=== PATIENT | male | born 1950 | race Caucasian/White ===

== ENCOUNTER 2022-11-10 09:46 | Outpatient (REF) | payer OTHER, SELFPAY ==
--- NOTE | ~2022-11-10 | XR_ITS ---
EXAMINATION: XR lumbar spine 2-3V CLINICAL INFORMATION: Reason for Exam LUMBAGO WITH SCIATICA RIGHT SIDE COMPARISON: None TECHNIQUE: 3 views of the lumbar spine FINDINGS: There are 6 nonrib-bearing lumbar-type vertebral bodies with lumbarization of S1. The last well-formed disc space will be referred to as S1-S2. Vertebral body heights are maintained. Alignment is maintained. Mild multilevel degenerative disc disease with loss of disc space height, facet arthropathy and disc osteophyte complexes. This is worst at T12/L1. Paravertebral soft tissues are unremarkable. XR/XR lumbar spine 2-3V IMPRESSION: * Mild spondylosis of the lumbar spine, as above detailed.
[2022-11-10 11:26] LABS: Estimated Average Glucose 186 mg/dL; Hemoglobin A1c % 8.1 %
[2022-11-10 13:10] LABS: Syphilis Screen Nonreactive (Nonreactive)
[2022-11-10 13:26] LABS: Alanine Aminotransferase 20 U/L (0-40); Albumin Level 4.1 g/dL (3.5-5.0); Alkaline Phosphatase 106 U/L (39-117); Anion Gap 17 (12-20); Aspartate Amino Transferase 15 U/L (5-37); Bilirubin Total 0.5 mg/dL (0.0-1.0); Blood Urea Nitrogen 20 mg/dL (9-16); Calcium 9.9 mg/dL (8.4-10.2); Carbon Dioxide 29 mmol/L (22-29); Chloride 100 mmol/L (96-108); Cholesterol 181 mg/dL; Estimated Glomerular Filt Rate 56; Glucose Random 291 mg/dL (60-115); HDL Cholesterol 42 mg/dL; LDL Cholesterol Calculated 88 mg/dl; Potassium 3.9 mmol/L (3.3-5.1); Sodium 142 mmol/L (135-145); Triglycerides 256 mg/dL
[2022-11-10 13:28] LABS: Prostate Specific Antigen 0.41 ng/mL (<0.05-4.0); TSH reflex Free T4 0.94 uIU/mL (0.32-4.0)
[2022-11-10 13:47] LABS: Folate 16.2 ng/mL (> or = 4.0); Vitamin B12 295 pg/mL (200-900)
== END 2022-11-10 09:47 | disposition home or self-care (01) ==
LOC: HO.XRAY 09:46
PROVIDERS: PCP Internal Medicine; Visit Provider Physician Assistant
DX: M54.41 Lumbago with sciatica, right side (principal); E78.2 Mixed hyperlipidemia; E11.9 Type 2 diabetes mellitus without complications; N40.0 Benign prostatic hyperplasia without lower urinary tract symptoms; F03.90 Unspecified dementia, unspecified severity, without behavioral disturbance, psychotic disturbance, mood disturbance, and anxiety; Z12.5 Encounter for screening for malignant neoplasm of prostate
CPT/HCPCS: 36415; 72100; 80053; 80061; 82607; 82746; 83036; 84153; 84443; 86780

== ENCOUNTER → 2022-12-10 14:02 | Outpatient (REF) | payer OTHER, SELFPAY ==
--- NOTE | 2022-12-10 | ECG_ITS ---
Test Reason : syncope Blood Pressure : / mmHG Vent. Rate : 097 BPM Atrial Rate : 097 BPM P-R Int : 206 ms QRS Dur : 082 ms QT Int : 358 ms P-R-T Axes : 052 -33 071 degrees QTc Int : 454 ms Normal sinus rhythm Left axis deviation Inferior infarct , age undetermined Nonspecific ST and T wave abnormality Abnormal ECG No previous ECGs available Referred By: Dora Navas Electronically Signed By:SEBASTIEN BOOGIE
--- NOTE | 2022-12-10 14:07 | HM_ITS ---
CARDIAC EVENT MONITOR Indication: Tachycardia Technique: Patient was hooked up to cardiac event monitor starting on 12/10/2022 for total period of 30 days. Compliance was 83% of the time. Strip quality was adequate. Findings: Baseline was normal sinus rhythm with lower start of 57 beats per minute and fastest heart rate of 144 beats per minute with no significant tachy or Basilio arrhythmias noted. There were no significant pauses noted. There were total of 3.5% of total beats accounting for PVCs accounting for frequent PVCs. There were total of 1.1% of supraventricular ectopic accounting for frequent supraventricular ectopy. There were no prolonged runs of SVT or nonsustained ventricular tachycardia noted Patient reported total of 7 events, 4 of them without any symptoms. Symptoms of dizziness correlated with isolated PACs. One reported symptom of tunnel vision correlated with PACs as well. Conclusion: 1. Baseline rhythm was normal sinus rhythm with no pauses 2. Frequent PVCs and PACs, mostly isolated 3. Patient reported events appear to be non arrhythmic correlating with isolated PACs: MTDD
== END ==
LOC: HO.CARD 14:02
PROVIDERS: PCP Internal Medicine; Visit Provider Physician Assistant
DX: R55 Syncope and collapse (principal); R00.0 Tachycardia, unspecified
CPT/HCPCS: 93005; 93270

== ENCOUNTER 2022-12-12 12:14 | Emergency (ER) | payer OTHER, SELFPAY ==
--- NOTE | ~2022-12-12 | XR_ITS ---
EXAMINATION: XR CHEST CLINICAL INFORMATION: Near syncope COMPARISON: None TECHNIQUE: PA and lateral views FINDINGS: Electronic device projects over the left chest wall. Normal symmetric lung volumes. No parenchymal consolidation. No pleural effusion. No pneumothorax. Cardiomediastinal silhouette and pulmonary vascularity are within normal limits. No acute osseous abnormalities. XR/XR chest 2V IMPRESSION: Clear lungs
--- NOTE | ~2022-12-12 | CT_ITS ---
EXAMINATION: CT HEAD WITHOUT CONTRAST CLINICAL INFORMATION: Near syncope COMPARISON: None. TECHNIQUE: Contiguous axial imaging was performed from the skull base to vertex without intravenous contrast. This CT examination was performed using dose optimization techniques as appropriate, variously including the following: * Automated exposure control * Adjustment of mA and/or kV according to patient size (this includes techniques or standardized protocols for targeted exams where dose is matched to indication/reason for exam; i.e. extremities or head) Use of iterative reconstruction technique DLP: 669 mGy-cm. FINDINGS: There is no evidence of acute intracranial hemorrhage or territorial infarction. No abnormal mass effect or midline shift is seen. Mejia to white matter differentiation is well preserved. No extra-axial fluid collections are identified. No hydrocephalus. Proportional prominence of the ventricles and sulcal spaces is consistent with mild volume loss. Patchy periventricular and deep white matter hypoattenuation is consistent with mild small vessel ischemic changes. The osseous structures and soft tissues are normal. The mastoid air cells and visualized portions of the paranasal sinuses are well aerated. CT/CT head/brain wo IV con IMPRESSION: No acute intracranial pathology. Mild volume loss with small vessel ischemic change.
[2022-12-12 12:18] VITALS: BP 108/72; PULSE 101; RESP 16; TEMP 36.9; O2SAT 99; BMI 25.7
--- NOTE | 2022-12-12 12:20 | ED.GENADULT ---
HPI - General Adult General Chief complaint: Dyspnea <JOSE Hilliard Last Filed: 12/12/22 17:36> Stated complaint: bp dropped sob <JOSE Hilliard Last Filed: 12/12/22 17:36> Time Seen by Provider: 12/12/22 14:56 <JOSE Hilliard Last Filed: 12/12/22 17:36> Source: patient <Junior Arias DO - Last Filed: 12/12/22 15:39> Mode of arrival: ambulatory <DO Suha Mckeon Last Filed: 12/12/22 15:39> Limitations: no limitations <DO Suha Mckeon Last Filed: 12/12/22 15:39> History of Present Illness HPI narrative: 72 year old male presents to the ED with episodes of near syncope dizziness for the past week. 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 He had a EKG. He states he was called today because EKG showed a possible heart attack. He had the EKG 2 days ago he states he was called come back to the ER for this abnormal EKG. Patient had EKG on arrival patient had a complete workup including CT scan x-rays and labs negative. Per his he get orthostatic and near syncopal when standing. They both state that Dora Yosef read the EKG and called them to come in for a heart attack <Junior Arias DO - Last Filed: 12/12/22 15:39> Related Data Allergies/adverse reactions: Allergies Allergy/AdvReac Type Severity Reaction Status Date / Time No Known Allergies Allergy Verified 12/12/22 12:18 <JOSE Hilliard - Last Filed: 12/12/22 17:36> Review of Systems Review of Systems: Review of systems: General: Patient denies any fever chills recent illness or falls Musculoskeletal: Denies back pain or body aches or other injuries HEENT: denies headache, runny nose, ear pain Respiratory: denies shortness of breath, cough Cardiovascular: no chest pain or palpitations : denies dysuria, frequency Abdomen: no nausea vomiting denies abdominal pain Extremities: no swelling, no pain Skin: no diaphoresis <DO Suha Mckeon Last Filed: 12/12/22 15:39> Yes all other systems are reviewed and are negative <DO Suha Mckeon Last Filed: 12/12/22 15:39> PMFSH Social History Social History: Social History Advance Directives: No Advance Directives Information Provided: Yes <JOSE Hilliard Last Filed: 12/12/22 17:36> Physical Exam ED Vital Signs: Vital Signs - 24 hr 12/12/22 12:18 Temperature 98.4 F Pulse Rate 101 H Respiratory Rate 16 Blood Pressure 108/72 Pulse Oximetry 99 Oxygen Delivery Method Room Air BMI result Body Mass Index 25.7 <JOSE Hilliard Last Filed: 12/12/22 17:36> Vital Signs - 24 hr 12/12/22 12:18 Temperature 98.4 F Pulse Rate 101 H Respiratory Rate 16 Blood Pressure 108/72 Pulse Oximetry 99 Oxygen Delivery Method Room Air BMI result Body Mass Index 25.7 <Junior Arias DO - Last Filed: 12/12/22 15:39> General: Well-appearing well-nourished in no signs of distress HEENT: Normocephalic atraumatic Neck: No signs of JVD, no masses no tenderness or lymphadenopathy Cardiovascular: Regular rate and rhythm Respiratory: Clear to auscultation bilaterally Abdomen: Soft nontender no masses Extremities: Normal pedal pulses no signs of edema Skin: Dry warm no rashes Back: No tenderness full ROM <DO Suha Mckeon Last Filed: 12/12/22 15:39> Course Course Course Narrative: RME performed by Nettie Guaman PA-C. Patient is a 72 year old male presenting to the emergency department with a fluctuating blood pressure. Patient states that he has been having episodes of near syncope when his blood pressure drops and it was recommended he come to the emergency department. Labs and EKG ordered. Patient placed back in the waiting room pending results and room availability. <JOSE Hilliard Last Filed: 12/12/22 17:36> Medical Decision Making Medical Decision Making MDM Narrative: Patient sent for an abnormal EKG by his primary care doctor. I did review the EKG which is unchanged from the 1 from today there is no signs ischemia there is no concerning signs on EKG for syncope. he already has a holter monitor in place on his chest from two days ago. Normal CT XR labs. I feel comfortable sending the patient home. I did put in a call to talk to Dora Tran <Junior Arias DO - Last Filed: 12/12/22 15:39> Differential Diagnosis Differential Diagnoses: The differential diagnosis associated with the presentation includes <Junior Arias DO - Last Filed: 12/12/22 15:39> Admission/Observation Consideration of admission/observation: Escalation of care including admission/observation considered <Junior Arias DO - Last Filed: 12/12/22 15:39> Consult Healthcare Provider Management of the patient was discussed with: Computer Terminal Operator and Primary Care Provider <Junior Arias DO - Last Filed: 12/12/22 15:39> Lab Data MDM Lab Attestation statement: I reviewed the patient's lab results. <Junior Arias DO - Last Filed: 12/12/22 15:39> Result Diagrams: 12/12/22 12:39 12/12/22 12:39 <JOSE Hilliard - Last Filed: 12/12/22 17:36> Labs: Lab Results 12/12/22 12/12/22 12/12/22 Range/Units 12:35 12:39 12:39 WBC 8.7 (4.8-10.8) X10*3/uL RBC 4.09 L (4.60-5.80) X10*6/uL Hgb 12.1 L (14.0-18.0) g/dl Hct 37.3 L (42.0-52.0) % MCV 91.2 (80.0-98.0) fL MCH 29.6 (27.0-33.0) pg MCHC 32.4 (31.0-36.0) g/dl RDW 13.0 (11.0-16.0) % Plt Count 189 (160-400) X10*3/uL MPV 10.6 (9.4-12.4) fL Immature Gran % (Auto) 0.3 (0.0-0.4) % Neut % (Auto) 73.3 H (45-73) % Lymph % (Auto) 15.7 L (20-40) % Franklin % (Auto) 5.9 (2-11) % Eos % (Auto) 4.3 H (0-4) % Baso % (Auto) 0.5 (0-2) % Lymph # (Auto) 1.4 (1.2-4.9) X10*3/uL Franklin # (Auto) 0.5 (0.1-1.2) X10*3/uL Eos # (Auto) 0.4 (0.0-0.4) X10*3/uL Baso # (Auto) 0.0 (0.0-0.2) X10*3/uL Abs Immat Gran (auto) 0.03 (0.00-0.03) X10*3/uL Absolute Neuts (auto) 6.3 (2.0-8.3) x10*3/uL Absolute Nucleated RBC 0.000 (0.0-0.012) X10*3/uL Nucleated RBC % (auto) 0.0 (0.0-0.2) /100WBC Sodium 143 (135-145) mmol/L Potassium 3.5 (3.3-5.1) mmol/L Chloride 100 (96-108) mmol/L Carbon Dioxide 34 H (22-29) mmol/L Anion Gap 13 (12-20) BUN 18 H (9-16) mg/dL Creatinine 1.12 (0.5-1.4) mg/dL Estim Creat Clear Calc 70.3 Estimated GFR > 60 Random Glucose 228 H (60-115) mg/dL Calcium 9.5 (8.4-10.2) mg/dL Magnesium 2.0 (1.6-2.6) mg/dL Total Bilirubin 0.6 (0.0-1.0) mg/dL AST 15 (5-37) U/L ALT 18 (0-40) U/L Alkaline Phosphatase 101 (39-117) U/L Troponin I High Sens (<3.5-35.0) ng/L B-Natriuretic Peptide (<100) pg/mL Total Protein 6.5 (6.5-8.0) g/dL Albumin 3.8 (3.5-5.0) g/dL COVID-19 (ROEL) Negative (Negative) COVID-19 Clin Com See Note 12/12/22 12/12/22 Range/Units 12:39 12:39 WBC (4.8-10.8) X10*3/uL RBC (4.60-5.80) X10*6/uL Hgb (14.0-18.0) g/dl Hct (42.0-52.0) % MCV (80.0-98.0) fL MCH (27.0-33.0) pg MCHC (31.0-36.0) g/dl RDW (11.0-16.0) % Plt Count (160-400) X10*3/uL MPV (9.4-12.4) fL Immature Gran % (Auto) (0.0-0.4) % Neut % (Auto) (45-73) % Lymph % (Auto) (20-40) % Franklin % (Auto) (2-11) % Eos % (Auto) (0-4) % Baso % (Auto) (0-2) % Lymph # (Auto) (1.2-4.9) X10*3/uL Franklin # (Auto) (0.1-1.2) X10*3/uL Eos # (Auto) (0.0-0.4) X10*3/uL Baso # (Auto) (0.0-0.2) X10*3/uL Abs Immat Gran (auto) (0.00-0.03) X10*3/uL Absolute Neuts (auto) (2.0-8.3) x10*3/uL Absolute Nucleated RBC (0.0-0.012) X10*3/uL Nucleated RBC % (auto) (0.0-0.2) /100WBC Sodium (135-145) mmol/L Potassium (3.3-5.1) mmol/L Chloride (96-108) mmol/L Carbon Dioxide (22-29) mmol/L Anion Gap (12-20) BUN (9-16) mg/dL Creatinine (0.5-1.4) mg/dL Estim Creat Clear Calc Estimated GFR Random Glucose (60-115) mg/dL Calcium (8.4-10.2) mg/dL Magnesium (1.6-2.6) mg/dL Total Bilirubin (0.0-1.0) mg/dL AST (5-37) U/L ALT (0-40) U/L Alkaline Phosphatase (39-117) U/L Troponin I High Sens 4.1 (<3.5-35.0) ng/L B-Natriuretic Peptide < 10 (<100) pg/mL Total Protein (6.5-8.0) g/dL Albumin (3.5-5.0) g/dL COVID-19 (ROEL) (Negative) COVID-19 Clin Com <JOSE Hilliard - Last Filed: 12/12/22 17:36> Lab Results 12/12/22 12/12/22 12/12/22 Range/Units 12:35 12:39 12:39 WBC 8.7 (4.8-10.8) X10*3/uL RBC 4.09 L (4.60-5.80) X10*6/uL Hgb 12.1 L (14.0-18.0) g/dl Hct 37.3 L (42.0-52.0) % MCV 91.2 (80.0-98.0) fL MCH 29.6 (27.0-33.0) pg MCHC 32.4 (31.0-36.0) g/dl RDW 13.0 (11.0-16.0) % Plt Count 189 (160-400) X10*3/uL MPV 10.6 (9.4-12.4) fL Immature Gran % (Auto) 0.3 (0.0-0.4) % Neut % (Auto) 73.3 H (45-73) % Lymph % (Auto) 15.7 L (20-40) % Franklin % (Auto) 5.9 (2-11) % Eos % (Auto) 4.3 H (0-4) % Baso % (Auto) 0.5 (0-2) % Lymph # (Auto) 1.4 (1.2-4.9) X10*3/uL Franklin # (Auto) 0.5 (0.1-1.2) X10*3/uL Eos # (Auto) 0.4 (0.0-0.4) X10*3/uL Baso # (Auto) 0.0 (0.0-0.2) X10*3/uL Abs Immat Gran (auto) 0.03 (0.00-0.03) X10*3/uL Absolute Neuts (auto) 6.3 (2.0-8.3) x10*3/uL Absolute Nucleated RBC 0.000 (0.0-0.012) X10*3/uL Nucleated RBC % (auto) 0.0 (0.0-0.2) /100WBC Sodium 143 (135-145) mmol/L Potassium 3.5 (3.3-5.1) mmol/L Chloride 100 (96-108) mmol/L Carbon Dioxide 34 H (22-29) mmol/L Anion Gap 13 (12-20) BUN 18 H (9-16) mg/dL Creatinine 1.12 (0.5-1.4) mg/dL Estim Creat Clear Calc 70.3 Estimated GFR > 60 Random Glucose 228 H (60-115) mg/dL Calcium 9.5 (8.4-10.2) mg/dL Magnesium 2.0 (1.6-2.6) mg/dL Total Bilirubin 0.6 (0.0-1.0) mg/dL AST 15 (5-37) U/L ALT 18 (0-40) U/L Alkaline Phosphatase 101 (39-117) U/L Troponin I High Sens (<3.5-35.0) ng/L B-Natriuretic Peptide (<100) pg/mL Total Protein 6.5 (6.5-8.0) g/dL Albumin 3.8 (3.5-5.0) g/dL COVID-19 (ROEL) Negative (Negative) COVID-19 Clin Com See Note 12/12/22 12/12/22 Range/Units 12:39 12:39 WBC (4.8-10.8) X10*3/uL RBC (4.60-5.80) X10*6/uL Hgb (14.0-18.0) g/dl Hct (42.0-52.0) % MCV (80.0-98.0) fL MCH (27.0-33.0) pg MCHC (31.0-36.0) g/dl RDW (11.0-16.0) % Plt Count (160-400) X10*3/uL MPV (9.4-12.4) fL Immature Gran % (Auto) (0.0-0.4) % Neut % (Auto) (45-73) % Lymph % (Auto) (20-40) % Franklin % (Auto) (2-11) % Eos % (Auto) (0-4) % Baso % (Auto) (0-2) % Lymph # (Auto) (1.2-4.9) X10*3/uL Franklin # (Auto) (0.1-1.2) X10*3/uL Eos # (Auto) (0.0-0.4) X10*3/uL Baso # (Auto) (0.0-0.2) X10*3/uL Abs Immat Gran (auto) (0.00-0.03) X10*3/uL Absolute Neuts (auto) (2.0-8.3) x10*3/uL Absolute Nucleated RBC (0.0-0.012) X10*3/uL Nucleated RBC % (auto) (0.0-0.2) /100WBC Sodium (135-145) mmol/L Potassium (3.3-5.1) mmol/L Chloride (96-108) mmol/L Carbon Dioxide (22-29) mmol/L Anion Gap (12-20) BUN (9-16) mg/dL Creatinine (0.5-1.4) mg/dL Estim Creat Clear Calc Estimated GFR Random Glucose (60-115) mg/dL Calcium (8.4-10.2) mg/dL Magnesium (1.6-2.6) mg/dL Total Bilirubin (0.0-1.0) mg/dL AST (5-37) U/L ALT (0-40) U/L Alkaline Phosphatase (39-117) U/L Troponin I High Sens 4.1 (<3.5-35.0) ng/L B-Natriuretic Peptide < 10 (<100) pg/mL Total Protein (6.5-8.0) g/dL Albumin (3.5-5.0) g/dL COVID-19 (ROEL) (Negative) COVID-19 Clin Com <Junior Arias DO - Last Filed: 12/12/22 15:39> Independent Interpretation I performed an independent interpretation of an: EKG <Junior Arias DO - Last Filed: 12/12/22 15:39> Interpretation: Rate98 nsr normal intervals no signs of ischemia Patient has normal intervals normal ID interval there is no delta wave there is no rib intervention had an in V1 V2 or signs of Brugada syndrome there is no LVH or needle-like Q-waves there is no normal QT interval and there is no epsilon wave that be associated with arrhythmogenic right ventricular dysplasia <Junior Arias DO - Last Filed: 12/12/22 15:39> Independent Historian Clinical information obtained from an independent historian. History obtained from or confirmed by: Spouse <Junior Arias DO - Last Filed: 12/12/22 15:39> External Record Review External record reviewed: Inpatient record and Outpatient record <Junior Arias DO - Last Filed: 12/12/22 15:39> Discharge Plan Discharge Clinical Impression: Near syncope <JOSE Hilliard - Last Filed: 12/12/22 17:36> Patient Disposition: Home, Self-Care <JOSE Hilliard - Last Filed: 12/12/22 17:36> Instructions: Near Syncope (ED) <JOSE Hilliard - Last Filed: 12/12/22 17:36> Additional Instructions: Please call to follow up with doctor. If you have any other concerns please return to the ED. <JOSE Hilliard - Last Filed: 12/12/22 17:36> Discharge Date/Time: 12/12/22 16:01 <JOSE Hilliard - Last Filed: 12/12/22 17:36>
--- NOTE | 2022-12-12 12:21 | ECG_ITS ---
Test Reason : dizziness Blood Pressure : / mmHG Vent. Rate : 098 BPM Atrial Rate : 098 BPM P-R Int : 214 ms QRS Dur : 084 ms QT Int : 374 ms P-R-T Axes : 057 -18 061 degrees QTc Int : 477 ms Sinus rhythm with 1st degree A-V block Nonspecific ST and T wave abnormality Abnormal ECG When compared with ECG of 10-DEC-2022 14:42, No significant changes seen Referred By: Nettie Guaman Electronically Signed By:SEBASTIEN BOOGIE
[2022-12-12 12:51] LABS: MANUAL DIFF FLAG NO
[2022-12-12 12:54] LABS: Basophils Percent Auto 0.5 % (0-2); Eosinophils Absolute Auto 0.4 X10*3/uL (0.0-0.4); Eosinophils Percent Auto 4.3 % (0-4); Hematocrit 37.3 % (42.0-52.0); Hemoglobin 12.1 g/dl (14.0-18.0); Imm Gran Abs Auto 0.03 X10*3/uL (0.00-0.03); Imm Gran Pct Auto 0.3 % (0.0-0.4); Lymphocytes Absolute Auto 1.4 X10*3/uL (1.2-4.9); Lymphocytes Percent Auto 15.7 % (20-40); Mean Corpuscular HGB Conc 32.4 g/dl (31.0-36.0); Mean Corpuscular Hemoglobin 29.6 pg (27.0-33.0); Mean Corpuscular Volume 91.2 fL (80.0-98.0); Mean Platelet Volume 10.6 fL (9.4-12.4); Monocytes Absolute Auto 0.5 X10*3/uL (0.1-1.2); Monocytes Percent Auto 5.9 % (2-11); Neutrophils Absolute Auto 6.3 x10*3/uL (2.0-8.3); Neutrophils Percent Auto 73.3 % (45-73); Platelet Count 189 X10*3/uL (160-400); Red Blood Count 4.09 X10*6/uL (4.60-5.80); White Blood Count 8.7 X10*3/uL (4.8-10.8)
[2022-12-12 13:06] LABS: IDNOW Serial# 16C4AD1C
[2022-12-12 13:07] LABS: COVID-19 Test Negative (Negative)
[2022-12-12 13:13] LABS: Alanine Aminotransferase 18 U/L (0-40); Albumin Level 3.8 g/dL (3.5-5.0); Alkaline Phosphatase 101 U/L (39-117); Anion Gap 13 (12-20); Aspartate Amino Transferase 15 U/L (5-37); Bilirubin Total 0.6 mg/dL (0.0-1.0); Blood Urea Nitrogen 18 mg/dL (9-16); Calcium 9.5 mg/dL (8.4-10.2); Carbon Dioxide 34 mmol/L (22-29); Chloride 100 mmol/L (96-108); Creatinine Clr Calc Pharmacy 70.3; Estimated Glomerular Filt Rate > 60; Glucose Random 228 mg/dL (60-115); Potassium 3.5 mmol/L (3.3-5.1); Sodium 143 mmol/L (135-145); Total Protein 6.5 g/dL (6.5-8.0)
[2022-12-12 13:20] LABS: Troponin-I High Sensitivity 4.1 ng/L (<3.5-35.0)
[2022-12-12 13:30] LABS: B Type Natriuretic Peptide < 10 pg/mL (<100)
== END 2022-12-12 16:01 | disposition home or self-care (01) ==
PROVIDERS: Physician Assistant Medical; Emergency Provider Student in an Organized Health Care Education/Training Program; PCP Internal Medicine
DX: R42 Dizziness and giddiness (principal); R06.02 Shortness of breath; R55 Syncope and collapse; Z20.822 Contact with and (suspected) exposure to COVID-19; Z20.828 Contact with and (suspected) exposure to other viral communicable diseases; Z79.899 Other long term (current) drug therapy
CPT/HCPCS: 70450; 71046; 80053; 83735; 83880; 84484; 85025; 87635; 93005; 99283; 99284

== ENCOUNTER 2023-01-07 08:44 | Outpatient (REF) | payer OTHER, SELFPAY ==
--- NOTE | 2023-01-07 08:46 | EMG_ITS ---
Please see scanned EMG / Nerve Conduction Report. MTDD
== END 2023-01-07 08:45 | disposition home or self-care (01) ==
LOC: HO.NEURO 08:44
PROVIDERS: PCP Internal Medicine; Visit Provider Physician Assistant
DX: M54.41 Lumbago with sciatica, right side (principal)
CPT/HCPCS: 95885; 95910

== ENCOUNTER 2023-05-05 10:53 | Outpatient (REF) | payer OTHER, SELFPAY ==
[2023-05-05 13:51] LABS: Appearance Urine Clear; Color Urine Yellow; Glucose Urine UA >=1000 mg/dL (Negative); Leukocyte Esterase Urine Negative (Negative); Nitrite Urine Negative (Negative); PH 5.5 (5.0-9.0); Specific Gravity - Urine >= 1.030 (1.005-1.025); UMIC TRIGGER UACC YES; Urine Blood Negative (Negative); Urine Ketones Negative (Negative); Urine Protein Negative (Neg-Trace)
[2023-05-05 13:56] LABS: Bacteria Urine None Seen (None Seen); Squamous Epithelial Cell Urine 0-2 /HPF (0-2); WBC Urine 0-5 /HPF (0-5)
[2023-05-05 14:17] LABS: Estimated Average Glucose 146 mg/dL; Hemoglobin A1c % 6.7 %
[2023-05-05 14:51] LABS: Alanine Aminotransferase 13 U/L (0-40); Alkaline Phosphatase 109 U/L (39-117); Anion Gap 16 (12-20); Aspartate Amino Transferase 13 U/L (5-37); Bilirubin Total 0.4 mg/dL (0.0-1.0); Blood Urea Nitrogen 15 mg/dL (9-16); Calcium 9.9 mg/dL (8.4-10.2); Carbon Dioxide 30 mmol/L (22-29); Chloride 105 mmol/L (96-108); Cholesterol 195 mg/dL; Estimated Glomerular Filt Rate > 60; Glucose Random 105 mg/dL (60-115); HDL Cholesterol 45 mg/dL; LDL Cholesterol Calculated 107 mg/dl; Potassium 3.2 mmol/L (3.3-5.1); Sodium 148 mmol/L (135-145); Total Protein 7.2 g/dL (6.5-8.0); Triglycerides 218 mg/dL
[2023-05-05 15:17] LABS: Prostate Specific Antigen 0.31 ng/mL (<0.05-4.0)
== END 2023-05-05 10:54 | disposition home or self-care (01) ==
LOC: HO.MANLDS 10:53
PROVIDERS: Visit Provider Physician Assistant
DX: Z12.5 Encounter for screening for malignant neoplasm of prostate (principal); N40.0 Benign prostatic hyperplasia without lower urinary tract symptoms; E11.9 Type 2 diabetes mellitus without complications; R30.0 Dysuria
CPT/HCPCS: 36415; 80053; 80061; 81001; 83036; 84153

== ENCOUNTER 2024-02-15 11:33 | Inpatient (IN) | payer BC, SELFPAY ==
[2024-02-15] VITALS (27 sets, daily range): BP systolic 132–201; BP diastolic 77–126; PULSE 71–94; RESP 11–20; TEMP 36.5–36.8; O2SAT 93–98; BMI 25.5
--- NOTE | 2024-02-15 | ECG_ITS ---
Test Reason : REPEAT EKG Blood Pressure : / mmHG Vent. Rate : 087 BPM Atrial Rate : 087 BPM P-R Int : 202 ms QRS Dur : 084 ms QT Int : 412 ms P-R-T Axes : 043 -39 069 degrees QTc Int : 495 ms Sinus rhythm with frequent Premature ventricular complexes Left axis deviation Septal infarct , age undetermined Abnormal ECG When compared with ECG of 15-FEB-2024 12:11, Premature atrial complexes are no longer Present Referred By: Dora Cid Electronically Signed By:SEBASTIEN BOOGIE
--- NOTE | ~2024-02-15 | CT_ITS ---
CT ANGIOGRAM NECK WITH CONTRAST CT ANGIOGRAM BRAIN WITH CONTRAST CLINICAL INFORMATION: Slurred speech. COMPARISON: Head CT 02/15/2024 and 12/12/2022. TECHNIQUE: Test bolus sequences followed by intravenous administration 70 mL of Omnipaque 350. Helical imaging was performed in the axial plane from the thoracic inlet to the skull vertex. Delayed postcontrast imaging of the head was also performed. The data was processed at the industrial engineering technologist workstation for generation of MIP sequences. Angled MIPs and volume rendered reformatted images were also generated at an offline 3D workstation under concurrent supervision. Stenoses are assessed in accordance with NASCET criteria unless otherwise indicated. This CT examination was performed using dose optimization techniques as appropriate, variously including the following: *Automated exposure control *Adjustment of mA and/or kV according to patient size (this includes techniques or standardized protocols for targeted exams where dose is matched to indication/reason for exam; i.e. extremities or head) *Use of iterative reconstruction technique FINDINGS: BRAIN: [Left parietotemporal craniotomy and left occipital craniectomy changes. Advanced chronic microangiopathy and chronic lacunar infarcts. There is no intracranial hemorrhage, hydrocephalus, extra-axial surface collection, midline shift, or other herniation pattern. Mejia to white matter differentiation is diffusely maintained without evidence of an evolved acute territorial infarct. The basilar cisterns are preserved. No significant soft tissue abnormality. No acute osseous abnormality. The paranasal sinuses and the mastoid air cells are well aerated.] CERVICAL SOFT TISSUES AND LUNG APICES: Multilevel cervical spondylosis. Imaged upper lungs are clear. The imaged upper mediastinum is unremarkable. No significant soft tissue findings within the neck. NECK CTA: [There is a classic 3 vessel configuration of the aortic arch. Proximal arch vessels are non-stenotic. The vertebral arteries are codominant. No significant ostial stenosis is visualized on either side. Both vertebral arteries are widely patent throughout their extracranial cervical course. Both common carotid arteries remain widely patent. Partially ulcerated fibrofatty atherosclerotic plaque and calcific plaque involving the right carotid bulb resulting in a 50% stenosis of the proximal right internal carotid artery. Atherosclerotic calcification results in a less than 50% stenosis of the proximal left cervical ICA. 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 There is no adjacent soft tissue abnormality to suggest intramural hematoma. BRAIN CTA: [Severe segmental stenoses involving the A3 segment of the left anterior cerebral artery and distal A4 branches. No focal flow-limiting stenosis nor discrete proximal large artery occlusion. 2.5 mm junctional prominence versus aneurysm at the left anterior cerebral artery/anterior communicating artery junction. Timing of the contrast bolus allows assessment of the major dural venous sinuses, which all opacify normally] CT/CT angio head neck stroke IMPRESSION: - No definite acute intracranial findings with assessment limited by the degree of advanced chronic microangiopathy and chronic lacunar infarcts within the deep mejia nuclei. If focal neurologic deficit persists, MRI would be more sensitive in evaluation if not contraindicated. - No proximal large vessel occlusions intracranially. 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 2.5 mm junctional prominence versus aneurysm at the left anterior cerebral artery/anterior communicating artery junction. 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 There is no adjacent soft tissue abnormality to suggest intramural hematoma. - Partially ulcerated fibrofatty atherosclerotic plaque and calcific plaque involving the right carotid bulb resulting in a 50% stenosis of the proximal right internal carotid artery. Atherosclerotic calcification results in a less than 50% stenosis of the proximal left cervical ICA. Findings discussed with Dr. Pisano at 12:25 PM on 02/15/2024.
--- NOTE | ~2024-02-15 | CT_ITS ---
EXAMINATION: CT HEAD WITHOUT CONTRAST (STROKE PROTOCOL) CLINICAL INFORMATION: Stroke protocol. Lower speech COMPARISON: CT head from 12/12/2022 TECHNIQUE: Contiguous axial imaging was performed from the skull base to vertex without intravenous administration of contrast. This CT examination was performed using dose optimization techniques as appropriate, variously including the following: *Automated exposure control *Adjustment of mA and/or kV according to patient size (this includes techniques or standardized protocols for targeted exams where dose is matched to indication/reason for exam; i.e. extremities or head) *Use of iterative reconstruction technique DLP: 772 mGy-cm FINDINGS: There is no evidence of acute intracranial hemorrhage or territorial infarction. Chronic white matter small vessel ischemic changes. Cerebral atrophy with commensurate ventricular changes. No abnormal mass effect or midline shift is seen. Mejia to white matter differentiation is well preserved. No extra-axial fluid collections are identified. The ventricles are normal in size. There is no abnormal attenuation within the brain parenchyma. Stable defect/absence along the left parietal bone and left posterior lateral occipital bone. The osseous structures and soft tissues are otherwise normal. The mastoid air cells and visualized portions of the paranasal sinuses are well aerated. Atherosclerotic calcifications. CT/CT head for stroke IMPRESSION: 1. No acute intracranial pathology. 2. Chronic white matter small vessel ischemic changes. This critical result was discussed with Dr. Pisano by telephone on 02/15/2024 12:09 PM and it was ascertained that the content and urgency of the report was understood at the time of direct communication.
--- NOTE | ~2024-02-15 | CT_ITS ---
EXAMINATION: CT HEAD WITHOUT CONTRAST (STROKE PROTOCOL) CLINICAL INFORMATION: Stroke protocol. EXPRESSIVE APHASIA, S/P TNR COMPARISON: 02/15/2024 TECHNIQUE: Contiguous axial imaging was performed from the skull base to vertex without intravenous administration of contrast. This CT examination was performed using dose optimization techniques as appropriate, variously including the following: *Automated exposure control *Adjustment of mA and/or kV according to patient size (this includes techniques or standardized protocols for targeted exams where dose is matched to indication/reason for exam; i.e. extremities or head) *Use of iterative reconstruction technique DLP: 773 mGy-cm FINDINGS: There is no evidence of acute intracranial hemorrhage or territorial infarction. No abnormal mass-effect or midline shift is seen. Mejia to white matter differentiation is well preserved. No extra-axial fluid collections are identified. The ventricles are normal in size. There is moderate periventricular white matter hypoattenuation consistent with chronic small vessel ischemic disease. Moderate volume loss is noted. No acute fracture is seen. Redemonstrated postoperative changes from prior left-sided craniotomy. The mastoid air cells and visualized portions of the paranasal sinuses are well-aerated. CT/CT head for stroke IMPRESSION: No acute intracranial pathology. Chronic small vessel ischemic disease and volume loss. This stroke protocol result was discussed with Marlin Sim on 02/16/2024 4:49 AM.
--- NOTE | ~2024-02-15 | CT_ITS ---
EXAMINATION: CT HEAD WITHOUT CONTRAST CLINICAL INFORMATION: Headache post PA. COMPARISON: CT head dated 02/15/2024. TECHNIQUE: Contiguous axial imaging was performed from the skull base to vertex without intravenous administration of contrast. This CT examination was performed using dose optimization techniques as appropriate, variously including the following: *Automated exposure control *Adjustment of mA and/or kV according to patient size (this includes techniques or standardized protocols for targeted exams where dose is matched to indication/reason for exam; i.e. extremities or head) *Use of iterative reconstruction technique DLP: 721 mGy-cm FINDINGS: There is no acute intracranial hemorrhage. There is no evidence of acute/subacute cerebral or cerebellar infarction. There is advanced microvascular ischemic change. There is no midline shift or mass effect. There is no extra-axial fluid collection. No hydrocephalus. The ocular lenses are surgically absent. There is evidence of left parietotemporal craniotomy and a left occipital craniectomy. The visualized paranasal sinuses are clear. The mastoid air cells are clear. CT/CT head/brain wo IV con IMPRESSION: No intracranial hemorrhage. Advanced microvascular ischemic change.
--- NOTE | ~2024-02-15 | MR_ITS ---
EXAMINATION: MR BRAIN WITHOUT CONTRAST CLINICAL INFORMATION: slurred speech, right sided weakness, facial droop, TNK given COMPARISON: Same day CTA head and neck TECHNIQUE: Multiplanar multisequence MR imaging of the brain was obtained without intravenous contrast. FINDINGS: Postsurgical changes from left parietotemporal and retrosigmoid craniotomy. There is a punctate focus of susceptibility artifact in the left cerebellopontine angle abutting the left middle cerebellar peduncle which is probably postsurgical. There is a punctate focus of hyperintense signal on diffusion-weighted imaging involving the inferomedial right thalamus (series 4 image 17) without definite ADC correlate but with corresponding T2/FLAIR hyperintense signal. No other reduced diffusion is identified. There is no intracranial hemorrhage on iron-sensitive imaging. No extra-axial collection or mass effect/herniation. Patchy periventricular, deep white matter, and brainstem T2 FLAIR hyperintensities consistent with moderate underlying microangiopathy. Chronic lacunar infarcts involving the right thalamus and bilateral basal ganglia. No hydrocephalus. Mild generalized cerebral volume loss with commensurate sulcal and ventricular prominence. The major flow voids at the skull base are preserved. The midline structures are normal. The cerebellar tonsils are normally positioned. The craniocervical junction is normal. Marrow signal is within normal limits. The visualized soft tissues are without significant abnormality. No signal abnormality within the paranasal sinuses or within the mastoid air cells. MR/MR head/brain wo con IMPRESSION: 1. Punctate focus of hyperintense signal on diffusion-weighted imaging involving the inferomedial right thalamus which may represent an acute to subacute infarct versus T2 shine through artifact. No other evidence of acute infarct or other acute intracranial abnormality. 2. Mild generalized volume loss, moderate chronic white matter microangiopathy, and chronic lacunar infarcts involving the deep eaton nuclei.
--- NOTE | ~2024-02-15 | XR_ITS ---
EXAMINATION: XR CHEST CLINICAL INFORMATION: Stroke. COMPARISON: Chest radiograph dated 12/12/2022. TECHNIQUE: Frontal view of the chest was obtained. FINDINGS: Heart size is normal. There is mild calcific atherosclerotic disease of the aorta. The lungs are clear. There is no pleural effusion. No pneumothorax. No acute osseous abnormality. XR/XR chest 1V IMPRESSION: No acute cardiopulmonary disease. Stable appearance of heart and lungs.
--- NOTE | ~2024-02-15 | CT_ITS ---
EXAMINATION: CT head/brain wo IV con CLINICAL INFORMATION: Reason for Exam AMS, LETHARGY COMPARISON: CT head 02/16/2024 TECHNIQUE: Contiguous axial imaging was performed from the skull base to vertex without intravenous contrast. Sagittal and coronal reformatted images were obtained. This CT examination was performed using dose optimization techniques as appropriate, variously including the following: * Automated exposure control * Adjustment of mA and/or kV according to patient size (this includes techniques or standardized protocols for targeted exams where dose is matched to indication/reason for exam; i.e. extremities or head) Use of iterative reconstruction technique DLP: 1504.34 mGy-cm FINDINGS: Mild global cerebral volume loss, unchanged. Confluent periventricular and deep white matter hypoattenuation is nonspecific but likely reflects sequelae of advanced chronic microangiopathy. Redemonstrated chronic lacunar infarcts in the deep eaton nuclei. No territorial loss of eaton-white differentiation. No acute intracranial hemorrhage or extra-axial fluid collection. No mass lesion, significant mass effect, or herniation pattern. Intracranial calcific atherosclerosis. Redemonstrated postsurgical changes following left retrosigmoid craniotomy with pachymeningeal thickening spanning the craniectomy defect with encephalomalacia in the subjacent left cerebellum. Additional left temporal craniotomy is seen. Trace mucosal disease in the maxillary sinuses. No mastoid effusion. CT/CT head/brain wo IV con IMPRESSION: No acute intracranial abnormality. Stable chronic findings as above.
--- NOTE | 2024-02-15 11:44 | ECG_ITS ---
Test Reason : STROKE Blood Pressure : / mmHG Vent. Rate : 094 BPM Atrial Rate : 094 BPM P-R Int : 214 ms QRS Dur : 080 ms QT Int : 406 ms P-R-T Axes : 050 -25 043 degrees QTc Int : 507 ms Sinus rhythm with 1st degree A-V block with frequent Premature ventricular complexes and Premature atrial complexes Inferior infarct , age undetermined Abnormal ECG When compared with ECG of 12-DEC-2022 12:30, Premature ventricular complexes are now Present Premature atrial complexes are now Present Referred By: Issa Pisano Electronically Signed By:SEBASTIEN BOOGIE
--- NOTE | 2024-02-15 11:45 | ED_ITS ---
HPI - Neuro Symptoms/Deficit General Chief Complaint: Stroke Stated Complaint: STROKE ALERT,SLURR/DROOP/MEMORY LKWT 0930,-THINNER Time Seen by Provider: 02/15/24 11:40 Source: patient and EMS Mode of arrival: EMS History of Present Illness HPI Narrative: This is 73 years old male presented to the emergency department complaining of slurred speech facial droop right leg weakness since about 930 in the morning. He arrived via EMS was brought to CT scan right away Time: 09:30 Last Observed Normal: 09:30 Location: speech History of same: No Severity: mild Quality: weak Relieving factors: none Exacerbating factors: none Related Data Home Medications ?Medication ?Instructions ?Recorded ?Confirmed alprazolam 0.25 mg tablet 0.125 mg PO BEDTIME 02/15/24 02/15/24 aspirin 81 mg chewable tablet 81 mg PO DAILY 02/15/24 02/15/24 diazepam 5 mg tablet 2.5 mg PO DAILY@1200 02/15/24 02/15/24 duloxetine 60 mg capsule,delayed 60 mg PO DAILY 02/15/24 02/15/24 release empagliflozin 10 mg tablet 10 mg PO DAILY 02/15/24 02/15/24 (Jardiance) glipizide 10 mg tablet, extended 10 mg PO DAILY 02/15/24 02/15/24 release 24 hr ibuprofen 200 mg tablet 200 mg PO Q6H PRN Pain 02/15/24 02/15/24 levothyroxine 75 mcg tablet 75 mcg PO DAILY 02/15/24 02/15/24 linaclotide 72 mcg capsule 72 mcg PO DAILY PRN constipation 02/15/24 02/15/24 (Linzess) paroxetine HCl 20 mg tablet 30 mg PO DAILY 02/15/24 02/15/24 pregabalin 100 mg capsule 100 mg PO TID 02/15/24 02/15/24 rosuvastatin 20 mg tablet 20 mg PO BEDTIME 02/15/24 02/15/24 tamsulosin 0.4 mg capsule 0.4 mg PO DAILY 02/15/24 02/15/24 tramadol 50 mg tablet 50 mg PO Q6H PRN Pain 02/15/24 02/15/24 valsartan 320 0.5 tab PO DAILY 02/15/24 02/15/24 mg-hydrochlorothiazide 12.5 mg tablet Allergies Allergy/AdvReac Type Severity Reaction Status Date / Time No Known Allergies Allergy Verified 02/15/24 12:22 Review of Systems 2 Constitutional: Constitutional: Reports no additional constitutional complaints ENT: Reports system reviewed and no additional complaints, except as documented Cardiovascular: Cardiovascular: Reports no additional cardiovascular complaints Respiratory: Respiratory: Reports no additional respiratory complaints Gastrointestinal: Gastrointestinal: Reports no additional gastrointestinal complaints Musculoskeletal: Musculoskeletal: Reports no additional musculoskeletal complaints Neurologic: Reports as per HPI and Reports Abnormal speech present Psychiatric: Psychiatric: Reports no additional psychiatric complaints [facility] Past Medical History Attestation statement: The following information was validated with the patient. [facility] Narrative: HTN Social History Social History Smoked in Last 30 Days: No Use of substances other than those prescribed or required for medical reasons: No Advance Directives: No Advance Directives Information Provided: No Do you have a plan to hurt others: No Plan Physical Exam 2 Vital Signs: Vital Signs: Last Vital Signs Temp 97.7 F 02/15/24 12:15 Pulse 75 02/15/24 15:48 Resp 16 02/15/24 15:48 BP 157/93 H 02/15/24 15:48 Pulse Ox 97 02/15/24 15:48 O2 Del Method Room Air 02/15/24 15:48 BMI result Body Mass Index 25.5 Const: General: cooperative and comfortable Nutritional Appearance: well nourished Orientation/consciousness: patient oriented x3 HEENT: Head: Yes normal to inspection Ears: hearing grossly normal bilaterally General nose exam: Normal external nose present Face and sinus: Yes normal facial exam Mouth: Normal oral and palatal mucosa present Throat: Yes posterior oropharynx normal Neck: Neck: Yes normal visual inspection Chest: Chest palpation & inspection: normal inspection of the chest Resp: Effort & Inspection: normal respiratory effort Auscultation: clear to auscultation bilaterally Cardio: Jugular venous distension: no JVD Rate: regular rate Rhythm: r egular rhythm GI: Inspection: Yes normal to inspection Palpation (GI): Soft to palpation Percussion: Yes normal to percussion : General: Yes no CVA tenderness Back/Spine/Pelvis: Back: no CVA tenderness Skin: General skin exam: no rashes or lesions noted Lesions: no lesions Rashes: no rashes Neuro: General: patient oriented x3 and other (POSITIVE LEFT FACIAL DRROP) Cognition (Neuro): normal cognition Speech: Abnormal speech present Course Course Course Narrative: Stroke scale is about 5 spoke with his the patient discussed TNK risk benefits decision to give TNK Reevaluation(s) Reevaluation #1: DOING WELL POST TNK, NO ICU BED , PER [facility] SAMANT[facility] REPEAT CT IN 12 H. IF NO BLEED TO IMC Time: 13:53 Reevaluation #2: DYASTOLIC 120 WILL GIVE iv LABETALOL,REMAIN NEUROLIGALLY STABLE Reevaluation #3: HE IS HAVING SELF WILL GET REPEAT HEAD CT Additional Reevaluation(s): i AM OFF SHIFT SIGNED OUT TO DR WARD Medications Administered Discontinued Medications Generic Name Dose Route Start Last Admin Trade Name Freq PRN Reason Stop Dose Admin Iohexol 100 ml 02/15/24 11:50 02/15/24 11:50 Iohexol 350 Mg/Ml 100 Ml Infus..Btl IV 02/15/24 11:51 70 ml ONCE ONE Administration Labetalol HCl 20 mg 02/15/24 15:12 02/15/24 15:24 Labetalol Hcl 100 Mg/20 Ml Vial IVPUSH 02/15/24 15:13 20 mg ONCE ONE Administration Tenecteplase 23 mg 02/15/24 13:30 02/15/24 12:13 Tenecteplase 50 Mg/10 Ml Kit IVPUSH 02/15/24 13:31 23 mg ONCE ONE Administration Medical Decision Making Medical Decision Making [facility] Narrative: Patient presented with stroke-like symptoms will get CT CTA we consider tPA because with in the window Differential Diagnosis Differential Diagnoses: The differential diagnosis associated with the presentation includes CVA/TIA Admission/Observation Consideration of admission/observation: Escalation of care including admission/observation considered Consult Healthcare Provider Management of the patient was discussed with: Manager [employer] neurologist Lab Data [facility] Lab Attestation statement: I reviewed the patient's lab results. 02/15/24 12:23 02/15/24 12:23 Labs: Lab Results 02/15/24 02/15/24 02/15/24 Range/Units 11:51 12:23 12:42 WBC 7.3 (4.8-10.8) X10*3/uL RBC 4.62 (4.60-5.80) X10*6/uL Hgb 13.7 L (14.0-18.0) g/dl Hct 41.5 L (42.0-52.0) % MCV 89.8 (80.0-98.0) fL MCH 29.7 (27.0-33.0) pg MCHC 33.0 (31.0-36.0) g/dl RDW 13.6 (11.0-16.0) % Plt Count 170 (160-400) X10*3/uL MPV 11.1 (9.4-12.4) fL Immature Gran % (Auto) 0.3 (0.0-0.4) % Neut % (Auto) 75.7 H (45-73) % Lymph % (Auto) 13.5 L (20-40) % Gulf % (Auto) 6.7 (2-11) % Eos % (Auto) 3.4 (0-4) % Baso % (Auto) 0.4 (0-2) % Lymph # (Auto) 1.0 L (1.2-4.9) X10*3/uL [place] # (Auto) 0.5 (0.1-1.2) X10*3/uL Eos # (Auto) 0.3 (0.0-0.4) X10*3/uL Baso # (Auto) 0.0 (0.0-0.2) X10*3/uL Abs Immat Gran (auto) 0.02 (0.00-0.03) X10*3/uL Absolute Neuts (auto) 5.5 (2.0-8.3) x10*3/uL Absolute Nucleated RBC 0.000 (0.0-0.012) X10*3/uL Nucleated RBC % (auto) 0.0 (0.0-0.2) /100WBC PT 11.5 (11.1-13.3) SEC Whole Blood PT 12.5 (11.1-13.5) sec INR 0.9 (0.9-1.1) Whole Blood INR 1.0 (0.9-1.1) APTT 27.4 (26.0-36.8) SEC Sodium 141 (135-145) mmol/L Potassium 3.6 (3.3-5.1) mmol/L Chloride 102 (96-108) mmol/L Carbon Dioxide 29 (22-29) mmol/L Anion Gap 14 (12-20) BUN 15 (9-16) mg/dL Creatinine 0.90 (0.5-1.4) mg/dL Estim Creat Clear Calc 86.2 Estimated GFR > 60 Random Glucose 192 H (60-115) mg/dL Calcium 9.0 D (8.4-10.2) mg/dL Total Bilirubin 0.4 (0.0-1.0) mg/dL AST 12 (5-37) U/L ALT 12 (0-40) U/L Alkaline Phosphatase 116 (39-117) U/L Troponin I High Sens 8.4 D (<3.5-35.0) ng/L Total Protein 6.7 (6.5-8.0) g/dL Albumin 3.6 (3.5-5.0) g/dL Independent Historian Clinical information obtained from an independent historian. History obtained from or confirmed by: Spouse NIH Stroke Scale Internal: Initial- Upon Arrival Level of Consciousness: Alert Level of Consciousness Questions: Answers both questions correctly Level of Consciousness Commands: Performs both tasks correctly Best Gaze: Normal Visual: No visual loss Facial Palsy: Partial paralysis Motor Arm (Right): No drift Motor Arm (Left): No drift Motor Leg (Right): No drift Motor Leg (Left): No drift Limb Ataxia: Present in one limb Sensory: Normal Best Language: Mild to moderate aphasia Dysarthia: Mild to moderate dysarthria Extinction and Inattention: No abnormality Score: 5 Critical Care Time Critical Care Time Critical Care Time: Yes Total Critical Care Time: 60 Attestation: speaking with /neurologist EMS taking care of the pt Discharge Plan Discharge Clinical Impression: Acute CVA (cerebrovascular accident) Patient Disposition: Admitted As Inpatient Print Language: Turkmen
[2024-02-15] MEDS: iohexoL 350 MG/ML 100 ML INFUS..BTL IV (11:50)
[2024-02-15 11:55] LABS: Prothrombin Time Whole Bld POC 12.5 sec (11.1-13.5)
[2024-02-15] MEDS: Tenecteplase 50 MG/10 ML KIT 23 MG IVPUSH (12:13)
[2024-02-15 12:27] LABS: MANUAL DIFF FLAG NO
[2024-02-15 12:32] LABS: Basophils Percent Auto 0.4 % (0-2); Eosinophils Absolute Auto 0.3 X10*3/uL (0.0-0.4); Eosinophils Percent Auto 3.4 % (0-4); Hematocrit 41.5 % (42.0-52.0); Hemoglobin 13.7 g/dl (14.0-18.0); Imm Gran Abs Auto 0.02 X10*3/uL (0.00-0.03); Imm Gran Pct Auto 0.3 % (0.0-0.4); Lymphocytes Percent Auto 13.5 % (20-40); Mean Corpuscular Hemoglobin 29.7 pg (27.0-33.0); Mean Corpuscular Volume 89.8 fL (80.0-98.0); Mean Platelet Volume 11.1 fL (9.4-12.4); Monocytes Absolute Auto 0.5 X10*3/uL (0.1-1.2); Monocytes Percent Auto 6.7 % (2-11); Neutrophils Absolute Auto 5.5 x10*3/uL (2.0-8.3); Neutrophils Percent Auto 75.7 % (45-73); Platelet Count 170 X10*3/uL (160-400); Red Blood Count 4.62 X10*6/uL (4.60-5.80); Red Cell Distribution Width 13.6 % (11.0-16.0); White Blood Count 7.3 X10*3/uL (4.8-10.8)
--- NOTE | 2024-02-15 12:36 | MHC.STROKE ---
Addendum entered by Ann Quesada 02/15/24 12:48: reports that LKWT was approximately 0930. Original Note: Called to ED for stroke alert. Pt was in CT scan when this proposal lead writer arrived. Pt appeared slightly confused. Said he was sleeping and then he couldn't speak. Pt's symptoms noticed by and physical therapist that was working with him. At home patient had slurred speech, right leg weakness, left sided facial droop, and was unable to state his ABC's or count per . When assessed in CT, patient remained slightly confused. left side facial droop appreciated Pt denies vision change. tongue midline. hand grasp equal. Right leg slightly weaker Pt was unable to name all items on NIH naming list. After results of CT head and conversation with neurology, it was decided to proceed with TNK. TNK 23mg administered at 1213. Risks and benefits reviewed with patient and by Dr. Pisano. BP elevated however remains within range to medicate with TNK. Stroke Education provided to patient and . Will continue to assist as needed.
[2024-02-15 12:42] LABS: Alanine Aminotransferase 12 U/L (0-40); Albumin Level 3.6 g/dL (3.5-5.0); Alkaline Phosphatase 116 U/L (39-117); Anion Gap 14 (12-20); Aspartate Amino Transferase 12 U/L (5-37); Bilirubin Total 0.4 mg/dL (0.0-1.0); Blood Urea Nitrogen 15 mg/dL (9-16); Carbon Dioxide 29 mmol/L (22-29); Chloride 102 mmol/L (96-108); Creatinine Clr Calc Pharmacy 86.2; Estimated Glomerular Filt Rate > 60; Glucose Random 192 mg/dL (60-115); Potassium 3.6 mmol/L (3.3-5.1); Sodium 141 mmol/L (135-145); Total Protein 6.7 g/dL (6.5-8.0)
[2024-02-15 12:49] LABS: Troponin-I High Sensitivity 8.4 ng/L (<3.5-35.0)
[2024-02-15 12:57] LABS: INTERNATIONAL NORM RATIO 0.9 (0.9-1.1); Prothrombin Time 11.5 SEC (11.1-13.3)
[2024-02-15 12:59] LABS: Partial Thromboplastin Time 27.4 SEC (26.0-36.8)
[2024-02-15] MEDS: Labetalol HCL 100 MG/20 ML VIAL 20 MG IVPUSH (15:24)
--- NOTE | 2024-02-15 15:24 | PC.NURSE ---
Addendum entered by Candice Arellano LPN 02/15/24 15:27: per MD Pisano, hold for DBP <100 Original Note: pt b/p holding DBP 117-120- MD Pisano notified, 20mg labetalol ordered
--- NOTE | 2024-02-15 15:31 | P.CNNE_ITS ---
History of Present Illness Data of Consult Service Date: 02/15/24 Primary Care Provider: JOSE Adams [facility] Reason for consult: Stroke 73 years old man with hypertension that was not well controlled was having episodes of dizziness and falling recently. He said that this morning he had different set of symptoms. His stated that his speech became different and he was not making sense not able to speak right and he had right-sided weakness. He remembered the symptoms. There was no shaking or convulsion. He was brought to emergency room and was evaluated for possible acute stroke and ultimately treated with TNK. I saw him afterwards and at that point he was feeling much better stating that speech was much better in the right-sided weakness was better. There was no complaint of headache or nausea or vomiting. Review of Systems 2 Review of Systems: Recent loss of balance and falling. [facility] Social History Social History Smoked in Last 30 Days: No Use of substances other than those prescribed or required for medical reasons: No Advance Directives: No Advance Directives Information Provided: No Do you have a plan to hurt others: No Plan Meds Allergies Allergy/AdvReac Type Severity Reaction Status Date / Time No Known Allergies Allergy Verified 02/15/24 12:22 Physical Exam 2 Vital Signs: Vital Signs: Last Vital Signs Temp 97.7 F 02/15/24 12:15 Pulse 80 02/15/24 15:29 Resp 16 02/15/24 15:29 BP 165/94 H 02/15/24 15:29 Pulse Ox 94 02/15/24 15:29 O2 Del Method Room Air 02/15/24 15:29 BMI result Body Mass Index 25.5 Neuro: Other: He was alert and awake with normal spontaneity of speech fluency comprehension and affect. He had difficulty with hearing especially standing on the left side. Face was symmetrical. There was no obvious arm or leg weakness. Plantars were flexor. There was no visual a sensory extinction. Speech was minimally slurred. Results Labs 02/15/24 12:23 02/15/24 12:23 Labs: Short CBC 02/15/24 Range/Units 12:23 WBC 7.3 (4.8-10.8) X10*3/uL Hgb 13.7 L (14.0-18.0) g/dl Hct 41.5 L (42.0-52.0) % Plt Count 170 (160-400) X10*3/uL BMP 02/15/24 12:23 Sodium 141 Potassium 3.6 Chloride 102 Carbon Dioxide 29 BUN 15 Creatinine 0.90 Calcium 9.0 D Liver Function 02/15/24 Range/Units 12:23 Total Bilirubin 0.4 (0.0-1.0) mg/dL AST 12 (5-37) U/L ALT 12 (0-40) U/L Alkaline Phosphatase 116 (39-117) U/L Albumin 3.6 (3.5-5.0) g/dL Noncontrast head CT did not reveal any obvious acute lesion. Left middle cerebral artery seemed hypodense on CT scan but there was no significant stenosis on CTA. Assessment and Plan (1) Acute CVA (cerebrovascular accident): Status: Acute 73 years old man with uncontrolled hypertension came to hospital with new onset of slurred speech and right-sided weakness and was treated with TNK for suspected ischemic infarction. Now he was feeling better with resolution of speech problem and right-sided weakness. Mainstay of management is to follow tPA per protocol and continue to monitor his blood pressure. Noncontrast MRI of brain is recommended for proper evaluation. Procedures Date of Service Date of Service: 02/15/24
--- NOTE | 2024-02-15 15:48 | PHA.MEDREC ---
Pharmacy Consult ? Medication Reconciliation Pharmacy has completed the medication reconciliation. Patient had list of medications. Per list, patient takes 1/2 tab of Vasartan/HCTZ daily, 1/2 tab of Xanax at bedtime and, 1/2 tab of valium in the afternoon. List also stated 30 mg of Paroxetine however patient is filling 20 mg tablets daily, however I left as list stated as tablet could be split. Shelby Orozco, MarilyD
[2024-02-15] MEDS: Acetaminophen 325 MG TABLET 975 MG PO (16:10)
--- NOTE | 2024-02-15 18:11 | PM.CCHP ---
History of Present Illness Date of Service: 02/15/24 Chief Complaint: Aphasia, R Weakness Patient is a 73 Y M w/ hypertension, last known well 09:30 02/14, developed aphasia, R LE weakness, presented as stroke page, received TNK, w/ reported interval improvement of aphasia, R LE weakness Review of Systems Review of Systems: Yes all other systems are reviewed and are negative [facility] Social History Social History Household Members: Spouse Housing: House Do you presently have visiting nurse or other home services: Yes (home physical therapy) Patient Tobacco Use Status: Never used Tobacco Smoked in Last 30 Days: No e-Cigarette/Vaping Use: Never Used Patient Interested in Nicotine Replacement: No (does not smoke) Second Hand Smoke Exposure: No Use of substances other than those prescribed or required for medical reasons: No Currently Displaying Signs/Symptoms of Drug Intoxication Withdrawal: No Any prior treatment program specific to substance use: No Have you been hit, kicked, punched, or otherwise hurt by someone within the past year? If so, by whom?: No Do you feel safe in your current relationship?: Yes Is there a partner from a previous relationship who is making you feel unsafe now?: No Are you made to feel afraid or neglected: No Advance Directives: No Advance Directives Information Provided: No Advance Directives on File: No Do you have a plan to hurt others: No Plan Recently lost weight without trying: No Eating poorly because of decreased appetite: No Nutrition Risks: No Nutritional Risk Poor oral hygiene: No Meds Allergies Allergy/AdvReac Type Severity Reaction Status Date / Time No Known Allergies Allergy Verified 02/15/24 12:22 Active Medications: Current Medications Sodium Chloride (0.9 % Sodium Chloride Flush 3 Ml Syringe) 3 ml IVFSH [facility] Medications ?Medication ?Instructions ?Recorded ?Confirmed ?Last Taken ?Type alprazolam 0.25 mg tablet 0.125 mg PO BEDTIME 02/15/24 02/15/24 Unknown History aspirin 81 mg chewable tablet 81 mg PO DAILY 02/15/24 02/15/24 Unknown History diazepam 5 mg tablet 2.5 mg PO DAILY@1200 02/15/24 02/15/24 Unknown History duloxetine 60 mg capsule,delayed 60 mg PO DAILY 02/15/24 02/15/24 Unknown History release empagliflozin 10 mg tablet 10 mg PO DAILY 02/15/24 02/15/24 Unknown History (Jardiance) glipizide 10 mg tablet, extended 10 mg PO DAILY 02/15/24 02/15/24 Unknown History release 24 hr ibuprofen 200 mg tablet 200 mg PO Q6H PRN Pain 02/15/24 02/15/24 Unknown History levothyroxine 75 mcg tablet 75 mcg PO DAILY 02/15/24 02/15/24 Unknown History linaclotide 72 mcg capsule 72 mcg PO DAILY PRN constipation 02/15/24 02/15/24 Unknown History (Linzess) paroxetine HCl 20 mg tablet 30 mg PO DAILY 02/15/24 02/15/24 Unknown History pregabalin 100 mg capsule 100 mg PO TID 02/15/24 02/15/24 Unknown History rosuvastatin 20 mg tablet 20 mg PO BEDTIME 02/15/24 02/15/24 Unknown History tamsulosin 0.4 mg capsule 0.4 mg PO DAILY 02/15/24 02/15/24 Unknown History tramadol 50 mg tablet 50 mg PO Q6H PRN Pain 02/15/24 02/15/24 Unknown History valsartan 320 0.5 tab PO DAILY 02/15/24 02/15/24 Unknown History mg-hydrochlorothiazide 12.5 mg tablet Physical Exam Vital Signs: Vital Signs: Last Vital Signs Temp 97.7 F 02/15/24 17:20 Pulse 79 02/15/24 17:20 Resp 16 02/15/24 17:20 BP 172/107 H 02/15/24 17:20 Pulse Ox 98 02/15/24 17:20 O2 Del Method Room Air 02/15/24 17:20 BMI result Body Mass Index 25.5 Const: General: cooperative, healthy appearing, comfortable, no acute distress, well developed, alert, awake and Physically active HEENT: Head: Yes normal to inspection, Yes normocephalic and Yes atraumatic Eyes: General: appearance normal, both eyes and all related structures Neck: Neck: Yes normal visual inspection, Yes full ROM, Yes no meningeal signs and Yes supple Chest: Chest palpation & inspection: normal inspection of the chest Resp: Other: no appreciable rales, rhonchi, wheezing Effort & Inspection: normal respiratory effort Cardio: Rate: regular rate Rhythm: regular rhythm GI: Inspection: Yes normal to inspection, No Abdominal wall edema and No distended Palpation (GI): Soft to palpation, not firm, nontender, no guarding and not rigid Skin: General skin exam: no rashes or lesions noted Neuro: Other: cranial nerve exam intact; no appreciable aphasia; 5/5 strength bilateral upper, lower extremities General: tone normal, moves all extremities, no meningeal signs and no focal motor deficits Extrem: General: Yes normal to inspection, Yes full ROM, Yes capillary refill normal, Yes no joint enlargement and Yes no clubbing, cyanosis or edema Psych: Appearance: grossly normal Results Labs 02/16/24 05:38 02/16/24 05:38 Labs: Laboratory Results - last 24 hr 02/15/24 02/15/24 02/15/24 11:51 12:23 12:42 MCV 89.8 MCH 29.7 MCHC 33.0 RDW 13.6 Plt Count 170 MPV 11.1 Immature Gran % (Auto) 0.3 Neut % (Auto) 75.7 H Lymph % (Auto) 13.5 L [place]er % (Auto) 6.7 Eos % (Auto) 3.4 Baso % (Auto) 0.4 Lymph # (Auto) 1.0 L [place] # (Auto) 0.5 Eos # (Auto) 0.3 Baso # (Auto) 0.0 Abs Immat Gran (auto) 0.02 Absolute Neuts (auto) 5.5 Absolute Nucleated RBC 0.000 Nucleated RBC % (auto) 0.0 PT 11.5 Whole Blood PT 12.5 INR 0.9 Whole Blood INR 1.0 APTT 27.4 Anion Gap 14 Estim Creat Clear Calc 86.2 Estimated GFR > 60 Random Glucose 192 H Calcium 9.0 D Total Bilirubin 0.4 AST 12 ALT 12 Alkaline Phosphatase 116 Troponin I High Sens 8.4 D Total Protein 6.7 Albumin 3.6 Imaging Radiologist's Impressions: Impressions Head CT 02/15/24 11:44 IMPRESSION: 1. No acute intracranial pathology. 2. Chronic white matter small vessel ischemic changes. This critical result was discussed with Dr. Pisano by telephone on 02/15/2024 12:09 PM and it was ascertained that the content and urgency of the report was understood at the time of direct communication. Head/Neck CTA 02/15/24 11:58 IMPRESSION: - No definite acute intracranial findings with assessment limited by the degree of advanced chronic microangiopathy and chronic lacunar infarcts within the deep eaton nuclei. If focal neurologic deficit persists, MRI would be more sensitive in evaluation if not contraindicated. - No proximal large vessel occlusions intracranially. 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 2.5 mm junctional prominence versus aneurysm at the left anterior cerebral artery/anterior communicating artery junction. 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 There is no adjacent soft tissue abnormality to suggest intramural hematoma. - Partially ulcerated fibrofatty atherosclerotic plaque and calcific plaque involving the right carotid bulb resulting in a 50% stenosis of the proximal right internal carotid artery. Atherosclerotic calcification results in a less than 50% stenosis of the proximal left cervical ICA. Findings discussed with Dr. Pisano at 12:25 PM on 02/15/2024. Chest X-Ray 02/15/24 12:38 IMPRESSION: No acute cardiopulmonary disease. Stable appearance of heart and lungs. Head CT 02/15/24 15:47 IMPRESSION: No intracranial hemorrhage. Advanced microvascular ischemic change. Assessment and Plan (1) Acute CVA (cerebrovascular accident): Status: Acute Plan Patient is a 73 Y M w/ hypertension, last known well 09:30 02/14, developed aphasia, R LE weakness, presented as stroke page, received TNK, w/ reported interval improvement of aphasia, R LE weakness N: aphasia, R LE weakness, c/f CVA, s/p TNK; post-TNK protocol; to follow-up CT H, MRI B CV: hypertension; anti-hypertensives PRN; resume home anti-hypertensives when tolerating PO R: no acute issues GI: advance diet as tolerated, post-TNK protocol : no acute issues H: s/p TNK; no chemical DVT prophylaxis ID: no acute issues E: to monitor hypo-/hyper-glycemia; hypothyroidism P: no acute issues
--- NOTE | 2024-02-15 18:24 | MHC.EDTECH ---
This pct attempted to obtain an EKG on patient but the patient was brought to MRI will try again later. RN Aware
--- NOTE | 2024-02-15 18:25 | PC.NURSE ---
pt transported to MRI
[2024-02-15 20:10] LABS: Glucose, Whole Blood 198 mg/dL (60-115)
--- NOTE | 2024-02-15 20:30 | PC.NURSE ---
pt returned from MRI 194- pt passed swallow screen per previous documentation, pt was able to eat a small meal of strawberry yogurt and an electrolyte water. pt sitting upright, speaking in full complete sentences, GCS 15 vss.call strong within reach
--- NOTE | 2024-02-15 20:56 | PC.NURSE ---
report given to ICU, RN, Kun
[2024-02-15 21:05] LABS: Glucose, Whole Blood 235 mg/dL (60-115)
[2024-02-15] MEDS: Insulin Lispro 100 UNIT/ML 3 ML VIAL SUBCUT (21:11)
[2024-02-16] VITALS (20 sets, daily range): BP systolic 123–182; BP diastolic 74–102; PULSE 78–120; RESP 10–20; TEMP 36.5–37.4; O2SAT 94–97; BMI 24.2
--- NOTE | 2024-02-16 02:32 | PC.NURSE ---
Addendum entered by Pacheco Lobato RN 02/16/24 05:12: 04:10: PATIENT AWAKENED FOR SCHEDULED NEURO CHECK..AWAKE...SPEECH DIFFICULTY NOTED...INAPPRPRIATE WORDS AND/OR GARBLED SPEECH...SOME COMPREHENSIBLE WORDS...MONTALVO BEFORE..NODS YES WHEN ASKED IF HAVING SPEECH DIFFICULTY...STATED TWO CATS WHEN ASKED IF HAS ANY PETS...UNABLE TO ARTICULATE NAMES OF CATS...ICU LOGGING CREW FOREMAN TO BEDSIDE...TRANSPORTED TO CT DEPT FOR F/U CT...PER ICU LOGGING CREW FOREMAN [facility] CALLED AND REPORTED NO BLEED...POC GLUCOSE 04:20= 161...BP 182/102 AT RETURN TO ICU...ALSO ADMITS TO BAD HEADACHE ...LABETOLOL 20 MG IV X1 PER LOGGING CREW FOREMAN...PASSED REPEAT SWALLOW EVAL...LOGGING CREW FOREMAN TO ORDER TYLENOL FOR HEADACHE..REPEAT UM=028/91 Original Note: ADMIT TO ICU APPROX 21:40..ALERT..ORIENTED X3...SPEECH CLEAR...MONTALVO...REMAINS WITH CHRONIC RIGHT LEG WEAKNESS BUT ABLE TO LIFT BOTH RIGHT AND LEFT LEGS 45 DEGREES ABOVE MATTRESS...DRINKING WATER W/O DIFFICULTY...LEFT EAR WITH COTTON BALL AT ABRASION SITE FROM FALL AT HOME 3 DAYS AGO PER AND PATIENT...PATIENT UPSET WITH UTILIZATION OF EXIT BED ALARM. UNABLE TO VOID WITH URINAL IN BED...ABLE TO VOID IN BEDSIDE COMMODE BUT DOES NOT USE CALL COOPER AT TIMES AND TRIES TO GET OOB BY SELF...DISCUSSED/REVIEWED NEED FOR ASSISTANCE AND/OR STANDBY ASSISTANCE WHEN OOB TO VOID D/T PAST FALLS AT HOME/RIGHT LEG WEAKNESS/TNK THERAPY <24 HOURS AGO/MONITOR LEADS. VERBALIZED UNDERSTANDING.
[2024-02-16 04:22] LABS: Glucose, Whole Blood 161 mg/dL (60-115)
[2024-02-16] MEDS: Labetalol HCL 100 MG/20 ML VIAL 20 MG IVPUSH (05:00)
[2024-02-16] MEDS: Acetaminophen Oral Liquid 650 MG/20.3 ML SOLUTION PO (05:39)
[2024-02-16 06:09] LABS: MANUAL DIFF FLAG NO
[2024-02-16 06:28] LABS: Basophils Percent Auto 0.4 % (0-2); Cholesterol 180 mg/dL (<200); Eosinophils Absolute Auto 0.2 X10*3/uL (0.0-0.4); Eosinophils Percent Auto 2.1 % (0-4); HDL Cholesterol 40 mg/dL (>40); Hematocrit 39.3 % (42.0-52.0); Hemoglobin 13.1 g/dl (14.0-18.0); Imm Gran Abs Auto 0.03 X10*3/uL (0.00-0.03); Imm Gran Pct Auto 0.3 % (0.0-0.4); LDL Cholesterol Calculated 94 mg/dL (<100); Lymphocytes Absolute Auto 1.1 X10*3/uL (1.2-4.9); Lymphocytes Percent Auto 11.3 % (20-40); Mean Corpuscular HGB Conc 33.3 g/dl (31.0-36.0); Mean Corpuscular Hemoglobin 29.9 pg (27.0-33.0); Mean Corpuscular Volume 89.7 fL (80.0-98.0); Mean Platelet Volume 12.3 fL (9.4-12.4); Monocytes Absolute Auto 0.7 X10*3/uL (0.1-1.2); Monocytes Percent Auto 7.9 % (2-11); Neutrophils Absolute Auto 7.3 x10*3/uL (2.0-8.3); Platelet Count 180 X10*3/uL (160-400); Red Blood Count 4.38 X10*6/uL (4.60-5.80); Red Cell Distribution Width 13.7 % (11.0-16.0); Triglycerides 233 mg/dL (<150); White Blood Count 9.4 X10*3/uL (4.8-10.8)
[2024-02-16 06:32] LABS: Anion Gap 17 (12-20); Blood Urea Nitrogen 17 mg/dL (9-16); Calcium 9.2 mg/dL (8.4-10.2); Carbon Dioxide 23 mmol/L (22-29); Chloride 104 mmol/L (96-108); Creatinine Clr Calc Pharmacy 89.2; Estimated Glomerular Filt Rate > 60; Glucose Random 190 mg/dL (60-115); Magnesium 2.4 mg/dL (1.6-2.6); Phosphorus 3.2 mg/dL (2.7-4.5); Potassium 3.9 mmol/L (3.3-5.1); Sodium 140 mmol/L (135-145)
--- NOTE | 2024-02-16 07:00 | CA_ITS ---
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 The visually estimated ejection fraction is between 55-60%. - No obvious valvular pathology seen on this study. Findings Procedure Information The study quality is limited by patients body habitus. Left Ventricle Normal left ventricular cavity size. There is moderately increased left ventricular wall thickness. The left ventricular systolic function is normal. The visually estimated ejection fraction is between 55-60%. There is no evidence of regional wall motion abnormalities. Diastolic function is normal for age. Right Ventricle Normal right ventricular cavity size and systolic function. Atria The left atrium is normal in size. The right atrium was not well visualized. Aortic Valve There is a normal trileaflet aortic valve. There is no aortic valve stenosis. There is no aortic valve regurgitation. Mitral Valve The mitral valve appears normal. There is trace mitral valve regurgitation. There is no mitral valve stenosis. Pulmonic Valve The pulmonic valve is likely normal. Tricuspid Valve There is trace tricuspid valve regurgitation. There is no evidence of pulmonary hypertension. Great Vessels The asc aorta is normal in size. Venous The inferior vena cava is normal in size and collapses greater than 50% with inspiration. Pericardium/Pleural There is no evidence of pericardial effusion. Prior Study Comparison No prior study available for comparison. Recommendations, Care & Conclusions No obvious valvular pathology seen on this study. Measurements 2D Linear Measurements IVSd: 1.58 0.6-0.9/0.6-1.0 cm LVIDd: 4.92 3.9-5.3/4.2-5.9 cm LVIDd Index: 2.29 2.4-3.2/2.2-3.1 cm/m2 LVIDs: 3.25 2.0-3.6 cm LVPWd: 1.40 0.7-1.1 cm Ao Root: 3.90 2.1-3.5 cm LA Diam: 3.10 2.7-3.8/3.0-4.0 cm LAIDs Index: 1.44 1.5-2.3 cm/m2 LV Mass: 388.90 67-162/88-224 g LV Mass Index: 180.88 43-95/49-115 g/m2 LVOT Diam: 2.30 3.0+(-)1.3 cm Mitral Valve MV Pk E: 0.38 MV PK A: 0.63 MV Decel Time: 124.00 E/A: 0.60 E'Lateral: 6.74 E'Medial: 7.07 E/E' Med: 5.30 E/E' Lat: 5.60 PHT: 36.00 MVA PHT: 6.11 Decel [place]: 3.03 Aortic Valve AoV Pk [place]: 1.01 AoV Mn [place]: 0.75 AoV VTI: 0.18 AoV Pk Grad: 4.00 Aov Mn Grad: 3.00 ETELVINA Cont.VTI: 3.20 LVOT LVOT Pk [place]: 0.56 LVOT Mn [place]: 0.38 LVOT VTI: 0.14 LVOT Pk Grad: 1.00 LVOT Mn Grad: 1.00 LVOT Diam: 2.30 LVOT Area: 4.15 Diastolic Function MV Pk E: 0.38 MV Pk A: 0.63 E/A: 0.60 E'Medial: 7.07 E/E' Med: 5.30 E' Laterial: 6.74 E/E' Lat: 5.60 Right Ventricle TAPSE (mm): 17.80 TVS' [place]: 12.50 Tricuspid Valve TR Pk [place]: 2.25 TR Pk Grad: 20.00 Great Vessels Aorta Ao Root-2D: 3.90 2.0-3.7 cm Ao Asc: 3.70 2.1-3.4 cm Pulmonary Valve PV Pk [place]: 0.96 Peak PV Grad: 4.00 Updated in Other Vendor System with Status of Final Miles Aleman MD electronically signed on 02/16/2024 12:01:43 PM with status of Final
[2024-02-16 07:27] LABS: Glucose, Whole Blood 221 mg/dL (60-115)
--- NOTE | 2024-02-16 07:48 | P.PNCC_ITS ---
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, patient developed expressive aphasia; emergent CT H performed, not suggestive of bleeding; upon my evaluation, patient with resolution of expressive aphasia Critical Care Time (minutes): 60 Physical Exam 2 Vital Signs: Vital Signs: Last Vital Signs Temp 98.2 F 02/16/24 00:00 Pulse 84 02/16/24 07:00 Resp 13 02/16/24 07:00 BP 165/93 H 02/16/24 07:00 Pulse Ox 95 02/16/24 07:00 O2 Del Method Room Air 02/16/24 07:00 BMI result Body Mass Index 24.2 Const: General: cooperative, healthy appearing, comfortable, no acute distress, well developed, alert, awake and Physically active O rientation/consciousness: patient oriented x3 HEENT: Head: Yes normal to inspection, Yes normocephalic and Yes atraumatic Eyes: General: appearance normal, both eyes and all related structures Neck: Neck: Yes normal visual inspection, Yes full ROM, Yes no meningeal signs and Yes supple Chest: Chest palpation & inspection: normal inspection of the chest Resp: Other: no appreciable rales, rhonchi, wheezing Effort & Inspection: normal respiratory effort Cardio: Rate: regular rate Rhythm: regular rhythm GI: Inspection: Yes normal to inspection, No Abdominal wall edema and No distended Palpation (GI): Soft to palpation, not firm, nontender, no guarding and not rigid Skin: General skin exam: no rashes or lesions noted Neuro: Other: cranial nerve exam intact; no appreciable aphasia; 5/5 strength in all 4 extremities; no appreciable ataxia General: patient oriented x3, tone normal, moves all extremities, no meningeal signs and no focal motor deficits Extrem: General: Yes normal to inspection, Yes full ROM, Yes capillary refill normal and Yes no clubbing, cyanosis or edema Psych: Appearance: grossly normal Objective Data Labs 02/16/24 05:38 02/16/24 05:38 Labs: Laboratory Results - last 24 hr 02/15/24 02/15/24 02/15/24 11:50 11:51 12:23 WBC 7.3 RBC 4.62 Hgb 13.7 L Hct 41.5 L MCV 89.8 MCH 29.7 MCHC 33.0 RDW 13.6 Plt Count 170 MPV 11.1 Immature Gran % (Auto) 0.3 Neut % (Auto) 75.7 H Lymph % (Auto) 13.5 L [place] % (Auto) 6.7 Eos % (Auto) 3.4 Baso % (Auto) 0.4 Lymph # (Auto) 1.0 L [place] # (Auto) 0.5 Eos # (Auto) 0.3 Baso # (Auto) 0.0 Abs Immat Gran (auto) 0.02 Absolute Neuts (auto) 5.5 Absolute Nucleated RBC 0.000 Nucleated RBC % (auto) 0.0 PT Whole Blood PT 12.5 INR Whole Blood INR 1.0 APTT Sodium 141 Potassium 3.6 Chloride 102 Carbon Dioxide 29 Anion Gap 14 BUN 15 Creatinine 0.90 Estim Creat Clear Calc 86.2 Estimated GFR > 60 POC Glucose 198 H Random Glucose 192 H Calcium 9.0 D Phosphorus Magnesium Total Bilirubin 0.4 AST 12 ALT 12 Alkaline Phosphatase 116 Troponin I High Sens 8.4 D Total Protein 6.7 Albumin 3.6 Triglycerides Cholesterol LDL Cholesterol, Calc HDL Cholesterol 02/15/24 02/15/24 02/15/24 12:42 19:35 21:00 WBC RBC Hgb Hct MCV MCH MCHC RDW Plt Count MPV Immature Gran % (Auto) Neut % (Auto) Lymph % (Auto) [place] % (Auto) Eos % (Auto) Baso % (Auto) Lymph # (Auto) [place] # (Auto) Eos # (Auto) Baso # (Auto) Abs Immat Gran (auto) Absolute Neuts (auto) Absolute Nucleated RBC Nucleated RBC % (auto) PT 11.5 Whole Blood PT INR 0.9 Whole Blood INR APTT 27.4 Sodium Potassium Chloride Carbon Dioxide Anion Gap BUN Creatinine Estim Creat Clear Calc Estimated GFR POC Glucose 235 H Random Glucose Calcium Phosphorus Magnesium Total Bilirubin AST ALT Alkaline Phosphatase Troponin I High Sens 12.0 Total Protein Albumin Triglycerides Cholesterol LDL Cholesterol, Calc HDL Cholesterol 02/16/24 02/16/24 02/16/24 04:18 05:38 07:24 WBC 9.4 RBC 4.38 L Hgb 13.1 L Hct 39.3 L MCV 89.7 MCH 29.9 MCHC 33.3 RDW 13.7 Plt Count 180 MPV 12.3 Immature Gran % (Auto) 0.3 Neut % (Auto) 78.0 H Lymph % (Auto) 11.3 L [place] % (Auto) 7.9 Eos % (Auto) 2.1 Baso % (Auto) 0.4 Lymph # (Auto) 1.1 L [place] # (Auto) 0.7 Eos # (Auto) 0.2 Baso # (Auto) 0.0 Abs Immat Gran (auto) 0.03 Absolute Neuts (auto) 7.3 Absolute Nucleated RBC 0.000 Nucleated RBC % (auto) 0.0 PT Whole Blood PT INR Whole Blood INR APTT Sodium 140 Potassium 3.9 Chloride 104 Carbon Dioxide 23 Anion Gap 17 BUN 17 H Creatinine 0.87 Estim Creat Clear Calc 89.2 Estimated GFR > 60 POC Glucose 161 H 221 H Random Glucose 190 H Calcium 9.2 Phosphorus 3.2 Magnesium 2.4 Total Bilirubin AST ALT Alkaline Phosphatase Troponin I High Sens Total Protein Albumin Triglycerides 233 H Cholesterol 180 LDL Cholesterol, Calc 94 HDL Cholesterol 40 L Progress Note: A&P Assessment and plan (1) Acute CVA (cerebrovascular accident): Status: Acute Plan Patient is a 73 Y M w/ hypertension, last known well 09:30 29, developed aphasia, R LE weakness, presented as stroke page, received TNK, w/ reported interval improvement of aphasia, R LE weakness N: aphasia, R LE weakness, c/f CVA, s/p TNK; post-TNK protocol CV: hypertension; to resume home anti-hypertensives R: no acute issues GI: advance diet as tolerated, post-TNK protocol : no acute issues H: s/p TNK; no chemical DVT prophylaxis ID: no acute issues E: to monitor hypo-/hyper-glycemia; hypothyroidism P: no acute issues Quality Stroke Does the patient have a stroke diagnosis?: Yes Reason for No Anti-thrombotic by Day Two: N/A - Med Ordered VTE Prior VTE?: No VTE Risk Level:: Medical - moderate - high VTE Device Contraindication: N/A - Device Ordered VTE Drug Contraindication: Treatment Not Tolerated
[2024-02-16] MEDS: Tamsulosin HCL 0.4 MG CAPSULE PO (07:57)
[2024-02-16] MEDS: Valsartan 160 MG TABLET PO (07:57)
[2024-02-16] MEDS: Levothyroxine Sodium 75 MCG TABLET PO (07:57)
[2024-02-16] MEDS: 0.9 % Sodium Chloride Flush 3 ML SYRINGE IVFLUSH ×2 (07:58→16:34)
[2024-02-16] MEDS: Insulin Lispro 100 UNIT/ML 3 ML VIAL SUBCUT ×4 (08:01→21:18)
[2024-02-16] MEDS: hydroCHLOROthiazide 12.5 MG TABLET 6.25 MG PO (08:02)
[2024-02-16 08:04] LABS: Estimated Average Glucose 171 mg/dL; Hemoglobin A1c % 7.6 % (<6.0)
--- NOTE | 2024-02-16 10:08 | MHC.CM.PN ---
Met w/pt and spouse to discuss d/c planning needs: pt is active w/[facility] - will refer for PT/OT home services. Pt uses a walker and cane, spouse to transport to home. HCP completed and in chart. CM to follow for changes in d/c needs
--- NOTE | 2024-02-16 11:03 | PM.EVENT ---
Event Note Date of Service: 02/16/24 Event Note: Patient has possible CVA, weakness and speech seems to be improved Patient is post-TNK mri-?Punctate focus of hyperintense signal on diffusion-weighted imaging involving the inferomedial right thalamus which may represent an acute to subacute infarct versus T2 shine through artifact. Physical exam: See ICU note unchanged. Assessment plan coordinated in ICU note: Start aspirin, monitor neuro checks, moniter bp closely , neurology followup Time Spent With Patient Time: Total time managing care of this patient today ____ minutes.
[2024-02-16 11:54] LABS: Glucose, Whole Blood 246 mg/dL (60-115)
[2024-02-16] MEDS: diazePAM 5 MG TABLET 2.5 MG PO (14:09)
--- NOTE | 2024-02-16 15:40 | MHC.SLORD ---
Speech Language Pathology Order Status: ZIG ZAG STITCHER attempted in AM but Pt was getting ultrasound. Reattempted in PM but Pt had just fallen asleep after transfer from the ICU per . ZIG ZAG STITCHER evaluation deferred to 02/17/24
[2024-02-16 16:17] LABS: Glucose, Whole Blood 200 mg/dL (60-115)
[2024-02-16] MEDS: Pregabalin 100 MG CAPSULE PO ×2 (16:33→21:10)
[2024-02-16] MEDS: ALPRAZolam 0.25 MG TABLET 0.125 MG PO (20:11)
[2024-02-16] MEDS: Atorvastatin Calcium 80 MG TABLET PO (20:11)
[2024-02-16 20:24] LABS: Glucose, Whole Blood 198 mg/dL (60-115)
[2024-02-16] MEDS: Acetaminophen 325 MG TABLET 975 MG PO (21:10)
[2024-02-16 22:53] LABS: Anion Gap 15 (12-20); Blood Urea Nitrogen 16 mg/dL (9-16); Calcium 9.3 mg/dL (8.4-10.2); Carbon Dioxide 27 mmol/L (22-29); Chloride 102 mmol/L (96-108); Creatinine Clr Calc Pharmacy 92.4; Estimated Glomerular Filt Rate > 60; Glucose Random 174 mg/dL (60-115); Magnesium 2.3 mg/dL (1.6-2.6); Potassium 3.3 mmol/L (3.3-5.1); Sodium 141 mmol/L (135-145)
--- NOTE | 2024-02-16 23:26 | PM.EVENT ---
Event Note Date of Service: 02/16/24 Event Note: Patient with acute CVA status post TNK. Patient noted to be more somnolent as per nurse. Will obtain CT head to rule out hemorrhagic conversion Time Spent With Patient Time: Total time managing care of this patient today ____ minutes.
[2024-02-17] VITALS: BP 146/87; PULSE 90; RESP 20; TEMP 36.6; O2SAT 97
[2024-02-17 04:00] VITALS: BP 161/106; PULSE 89; RESP 20; TEMP 36.6; O2SAT 98
--- NOTE | 2024-02-17 05:26 | PC.NURSE ---
around 2300, pt awakened for vital signs. unable to answer orientation questions besides name and date of . increased somnolence and confusion. speech unclear and rambling at times. PERRLA. BL hand grasp strong bilaterally. No arm drift. MD notified. repeat CT head ordered and complete. No acute findings per radiologist report. MD aware. Pt returned to room and denies complaints at this time. No further orders at this time. Call strong in reach. Plan of care ongoing
[2024-02-17] MEDS: Levothyroxine Sodium 75 MCG TABLET PO (05:54)
[2024-02-17 06:24] LABS: MANUAL DIFF FLAG NO
[2024-02-17 06:26] LABS: Basophils Percent Auto 0.4 % (0-2); Eosinophils Absolute Auto 0.2 X10*3/uL (0.0-0.4); Eosinophils Percent Auto 2.2 % (0-4); Hematocrit 39.6 % (42.0-52.0); Hemoglobin 13.2 g/dl (14.0-18.0); Imm Gran Abs Auto 0.02 X10*3/uL (0.00-0.03); Imm Gran Pct Auto 0.3 % (0.0-0.4); Lymphocytes Absolute Auto 1.5 X10*3/uL (1.2-4.9); Mean Corpuscular HGB Conc 33.3 g/dl (31.0-36.0); Mean Corpuscular Hemoglobin 30.1 pg (27.0-33.0); Mean Corpuscular Volume 90.2 fL (80.0-98.0); Mean Platelet Volume 11.4 fL (9.4-12.4); Monocytes Absolute Auto 0.6 X10*3/uL (0.1-1.2); Monocytes Percent Auto 9.1 % (2-11); Neutrophils Absolute Auto 4.6 x10*3/uL (2.0-8.3); Platelet Count 161 X10*3/uL (160-400); Red Blood Count 4.39 X10*6/uL (4.60-5.80); Red Cell Distribution Width 13.7 % (11.0-16.0); White Blood Count 6.9 X10*3/uL (4.8-10.8)
[2024-02-17 06:39] LABS: Anion Gap 13 (12-20); Blood Urea Nitrogen 15 mg/dL (9-16); Calcium 9.2 mg/dL (8.4-10.2); Carbon Dioxide 29 mmol/L (22-29); Chloride 102 mmol/L (96-108); Creatinine Clr Calc Pharmacy 92.4; Estimated Glomerular Filt Rate > 60; Glucose Random 177 mg/dL (60-115); Potassium 3.4 mmol/L (3.3-5.1); Sodium 141 mmol/L (135-145)
[2024-02-17 07:27] VITALS: TEMP 36.8
[2024-02-17 08:16] VITALS: BP 180/110
[2024-02-17] MEDS: Aspirin 81 MG TAB.CHEW PO (08:16)
[2024-02-17] MEDS: Valsartan 160 MG TABLET PO (08:16)
[2024-02-17] MEDS: Eye Irrigation Solution 118 ML IRRIG.SOLN 1 APPL EYE-LEFT (08:16)
[2024-02-17 08:17] VITALS: BP 180/110
[2024-02-17] MEDS: hydroCHLOROthiazide 12.5 MG TABLET 6.25 MG PO (08:17)
[2024-02-17] MEDS: Tamsulosin HCL 0.4 MG CAPSULE PO (08:17)
[2024-02-17] MEDS: PARoxetine HCL 30 MG TABLET PO (08:17)
[2024-02-17] MEDS: DULoxetine HCl 60 MG CAPSULE.DR PO (08:17)
[2024-02-17] MEDS: 0.9 % Sodium Chloride Flush 3 ML SYRINGE IVFLUSH (08:18)
[2024-02-17] MEDS: Insulin Lispro 100 UNIT/ML 3 ML VIAL SUBCUT ×2 (08:18→11:57)
[2024-02-17 08:22] LABS: Glucose, Whole Blood 218 mg/dL (60-115)
[2024-02-17] MEDS: ALPRAZolam 0.25 MG TABLET PO (09:30)
[2024-02-17] MEDS: Pregabalin 100 MG CAPSULE PO (09:30)
[2024-02-17 11:00] VITALS: BP 152/80; PULSE 80; RESP 18; TEMP 36.9; O2SAT 99
--- NOTE | 2024-02-17 11:19 | MHC.SP.ADU ---
Referring provider: Dora Cid Reason for Referral: CVA Type of Treatment: 50652 Clinical Swallowing Evaluation Date of Plan of Treatment: 02/17/24 Onset of Symptoms/Illness: 02/15/24 Date Treatment Started: 02/17/24 Medical Diagnosis: Acute CVA s/p TNK Primary Speech Language Diagnosis: R13.10 Dysphagia History Patient is 73 year old male who presented to ED on 02/14 d/t concern w/ speech, balance difficulties, and increase in blood pressure. Per patient's , patient was w/ PT when he presented w/ garbled speech, was unable to produce automatic speech (count, ABCs, months). Patient's reports he is still having some word finding difficulties, however otherwise resolved. She elaborates that minimal word finding difficulties are not acute. Brain MRI notes ?acute vs. subactue infarct at thalamus as well as chronic lacunar infarcts. See further imaging notes below. 02/14 MRI: IMPRESSION: 1. Punctate focus of hyperintense signal on diffusion-weighted imaging involving the inferomedial right thalamus which may represent an acute to subacute infarct versus T2 shine through artifact. No other evidence of acute infarct or other acute intracranial abnormality. 2. Mild generalized volume loss, moderate chronic white matter microangiopathy, and chronic lacunar infarcts involving the deep eaton nuclei. Head CT 02/15/24 11:44 IMPRESSION: 1. No acute intracranial pathology. 2. Chronic white matter small vessel ischemic changes. This critical result was discussed with Dr. Pisano by telephone on 02/15/2024 12:09 PM and it was ascertained that the content and urgency of the report was understood at the time of direct communication. Head/Neck CTA 02/15/24 11:58 IMPRESSION: - No definite acute intracranial findings with assessment limited by the degree of advanced chronic microangiopathy and chronic lacunar infarcts within the deep eaton nuclei. If focal neurologic deficit persists, MRI would be more sensitive in evaluation if not contraindicated. - No proximal large vessel occlusions intracranially. 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 2.5 mm junctional prominence versus aneurysm at the left anterior cerebral artery/anterior communicating artery junction. 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 There is no adjacent soft tissue abnormality to suggest intramural hematoma. - Partially ulcerated fibrofatty atherosclerotic plaque and calcific plaque involving the right carotid bulb resulting in a 50% stenosis of the proximal right internal carotid artery. Atherosclerotic calcification results in a less than 50% stenosis of the proximal left cervical ICA. Findings discussed with Dr. Pisano at 12:25 PM on 02/15/2024. Chest X-Ray 02/15/24 12:38 IMPRESSION: No acute cardiopulmonary disease. Stable appearance of heart and lungs. Head CT 02/15/24 15:47 IMPRESSION: No intracranial hemorrhage. Advanced microvascular ischemic change. Medical History: Other: No medical hx noted in chart Recent Hospitalizations: No Respiratory Needs: Room Air Patient Orientation: Alert & Oriented x 4 Social History: Assistive Devices in use: UNK Past Speech Language Therapy: None reported Swallowing History: Dysphagia Specific: Within Functional Limits Comments: Presents w/ swallow WFL during PO trials. Patient tolerated thin liquids, claudia cracker dipped in applesauce, and dry claudia cracker with all aspects of swallow deemed WFL. Timely mastication, no overt clinical s/s aspiration, no vocal changes, timely AP transport. Pre-eval Risk for Aspiration: Pre-evaluation Dietary Consistencies: Regular Pre-eval Liquid Intake: Thin Pre-eval Medication Intake: Whole with Liquid Assessment Within Functional Limits Clinical Impression: Intact Observations: Patient's speech and language observed to be WFL. Patient named objects around room, answered orientation questions, auditory verbal comprehension questions, and participated in automatic speech tasks (counting 1-20, naming days of week, naming months) all with 100% accuracy. Patient's reports ?minimal word finding difficulty which was reportedly present prior to current hospitalization. Informal Voice Assessment: Voice Loudness: Normal Voice Nasal Resonance: Normal Voice Oral Resonance: Normal Voice Phonatory-based Quality: Normal Voice Pitch: Normal Impressions and Recommendations Summary:Patient seen by [facility] for speech, language, and swallow evaluation. All deemed to be WFL. Recommend d/c [facility] tx at this time. Please re-refer if future concerns arise in these areas. Recommendation for Speech Therapy: NA:Typical Evaluation Patient Education: Completed: Yes Patient/Caregiver Education: Described Results of Evaluation Patient expressed understanding of evaluation Family/Caregivers expressed agreement with goals and treatment plan Comments/Barriers to Learning: Ct Manager Clinican/Clinical Fellow: No Supervisory Statement: N/A Speech Language Pathologist: Jackie Vargas M.A., [facility]
[2024-02-17] MEDS: diazePAM 5 MG TABLET 2.5 MG PO (13:12)
--- NOTE | 2024-02-17 15:24 | PM.DS ---
DS: Providers Provider Date of Service: 02/17/24 Date of admission: 02/15/24 18:02 Date of discharge: 02/17/24 Primary care physician: JOSE Adams Consults: 02/15/24 15:18 Consult to Neurology Stat Consulting Provider: [facility] Reason for consultation: cva Has provider been notified: Yes Attending physician on discharge: Elijah Person Discharging clinician: Elijah Person DS: Diagnosis Discharge Diagnosis (1) Acute CVA (cerebrovascular accident): Status: Acute DS: Summary Hospital Course Hospital Course: Hpi: 73 Y M w/ hypertension, last known well 09:30 02/14, developed aphasia, R LE weakness, presented as stroke page, received TNK, w/ reported interval improvement of aphasia, R LE weakness. Hospital course: Patient was admitted for aphasia, right lower extremity weakness-subsequently patient had CTA done which reviewed by Neurology-Noncontrast head CT did not reveal any obvious acute lesion. Left middle cerebral artery seemed hypodense on CT scan but there was no significant stenosis on CTA: Patient received TNK-patient's symptoms seems to be improved significantly, subsequently had episode of mild aphasia, repeat CT scan negative. MRI showed-Acute small right thalamic ischemic infarction probably of small vessel disease from HTN.echo seems ef 55-60% . Discussed with neurology-continue aspirin, statin, blood pressure control. Patient is on valsartan/hydrochlorothiazide for blood pressure, we added amlodipine 2.5 mg if blood pressure consistently in 150 range,then start using amlodipine. speech and swallow saw him see rosalinda Pt recomended home PT. follow up outpatient with pcp and consider outpatient neurology eval. plan: hold alprazolam for 2 days to avoid seadtion ,as well as taper to stop diazepam outpatient if possible. continue aspirin, statin, blood pressure control. amlodipine 2.5 mg if blood pressure consistently in 150 range,then start using amlodipine. follow up outpatient with pcp and consider outpatient neurology eval. patient will be going home with services. Above management discussed with the patient and his in detail length they both understand and in agreement with the above plan, time spent 40 minute. Time Attestation Total time managing care of this patient today: 40 mintues. Discharge Coordination Time (in mins): 40 min Quality: Safe Use of Opioids Does Pt have an Active Cancer Diagnosis on the Problem List?: No Quality: Stroke Does the patient have a stroke diagnosis?: No Physical Exam Vital Signs: Vital Signs: Last Vital Signs Temp 98.4 F 02/17/24 11:00 Pulse 80 02/17/24 11:00 Resp 18 02/17/24 11:00 BP 152/80 H 02/17/24 11:00 Pulse Ox 99 02/17/24 11:00 O2 Del Method Room Air 02/17/24 11:00 BMI result Body Mass Index 24.2 Appearance: Alert.? Oriented X3. Eyes: Pupils equal, round and reactive to light.? cvs: rrr, [id number] . res: clear to auscultation ,no rhonchii or wheezing abd: no rebound or guarding ,nt, bs present. ext pulses present , no cyanosis, . neuro: axo3 , nonfocal,moves all extermities. DS: Data Data Completed and Pending Labs on day of discharge: Laboratory Results - last 24 hr 02/16/24 02/16/24 02/16/24 15:55 20:21 22:23 WBC RBC Hgb Hct MCV MCH MCHC RDW Plt Count MPV Immature Gran % (Auto) Neut % (Auto) Lymph % (Auto) [place] % (Auto) Eos % (Auto) Baso % (Auto) Lymph # (Auto) [place] # (Auto) Eos # (Auto) Baso # (Auto) Abs Immat Gran (auto) Absolute Neuts (auto) Absolute Nucleated RBC Nucleated RBC % (auto) Sodium 141 Potassium 3.3 Chloride 102 Carbon Dioxide 27 Anion Gap 15 BUN 16 Creatinine 0.84 Estim Creat Clear Calc 92.4 Estimated GFR > 60 POC Glucose 200 H 198 H Random Glucose 174 H Calcium 9.3 Magnesium 2.3 02/17/24 02/17/24 02/17/24 05:55 07:57 10:56 WBC 6.9 RBC 4.39 L Hgb 13.2 L Hct 39.6 L MCV 90.2 MCH 30.1 MCHC 33.3 RDW 13.7 Plt Count 161 MPV 11.4 Immature Gran % (Auto) 0.3 Neut % (Auto) 66.0 Lymph % (Auto) 22.0 [place] % (Auto) 9.1 Eos % (Auto) 2.2 Baso % (Auto) 0.4 Lymph # (Auto) 1.5 [place] # (Auto) 0.6 Eos # (Auto) 0.2 Baso # (Auto) 0.0 Abs Immat Gran (auto) 0.02 Absolute Neuts (auto) 4.6 Absolute Nucleated RBC 0.000 Nucleated RBC % (auto) 0.0 Sodium 141 Potassium 3.4 Chloride 102 Carbon Dioxide 29 Anion Gap 13 BUN 15 Creatinine 0.84 Estim Creat Clear Calc 92.4 Estimated GFR > 60 POC Glucose 218 H 255 H Random Glucose 177 H Calcium 9.2 Magnesium Imaging Chest x-ray: Radiologist's impression: ITS Impressions Head CT 02/15/24 11:44 IMPRESSION: 1. No acute intracranial pathology. 2. Chronic white matter small vessel ischemic changes. This critical result was discussed with Dr. Pisano by telephone on 02/15/2024 12:09 PM and it was ascertained that the content and urgency of the report was understood at the time of direct communication. Head/Neck CTA 02/15/24 11:58 IMPRESSION: - No definite acute intracranial findings with assessment limited by the degree of advanced chronic microangiopathy and chronic lacunar infarcts within the deep eaton nuclei. If focal neurologic deficit persists, MRI would be more sensitive in evaluation if not contraindicated. - No proximal large vessel occlusions intracranially. 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 2.5 mm junctional prominence versus aneurysm at the left anterior cerebral artery/anterior communicating artery junction. 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 There is no adjacent soft tissue abnormality to suggest intramural hematoma. - Partially ulcerated fibrofatty atherosclerotic plaque and calcific plaque involving the right carotid bulb resulting in a 50% stenosis of the proximal right internal carotid artery. Atherosclerotic calcification results in a less than 50% stenosis of the proximal left cervical ICA. Findings discussed with Dr. Pisano at 12:25 PM on 02/15/2024. Chest X-Ray 02/15/24 12:38 IMPRESSION: No acute cardiopulmonary disease. Stable appearance of heart and lungs. Head CT 02/15/24 15:47 IMPRESSION: No intracranial hemorrhage. Advanced microvascular ischemic change. Brain MRI 02/15/24 19:01 IMPRESSION: 1. Punctate focus of hyperintense signal on diffusion-weighted imaging involving the inferomedial right thalamus which may represent an acute to subacute infarct versus T2 shine through artifact. No other evidence of acute infarct or other acute intracranial abnormality. 2. Mild generalized volume loss, moderate chronic white matter microangiopathy, and chronic lacunar infarcts involving the deep eaton nuclei. Head CT 02/16/24 04:38 IMPRESSION: No acute intracranial pathology. Chronic small vessel ischemic disease and volume loss. This stroke protocol result was discussed with Marlin Sim on 02/16/2024 4:[address] 02/17/24 00:10 IMPRESSION: No acute intracranial abnormality. Stable chronic findings as above. Additional Comments Additional comments: echo: Conclusions: - The left ventricular systolic function is normal. The visually estimated ejection fraction is between 55-60%. - No obvious valvular pathology seen on this study. Findings Procedure Information The study quality is limited by patients body habitus. Left Ventricle Normal left ventricular cavity size. There is moderately increased left ventricular wall thickness. The left ventricular systolic function is normal. The visually estimated ejection fraction is between 55-60%. There is no evidence of regional wall motion abnormalities. Diastolic function is normal for age. Right Ventricle Normal right ventricular cavity size and systolic function. Atria The left atrium is normal in size. The right atrium was not well visualized. Aortic Valve There is a normal trileaflet aortic valve. There is no aortic valve stenosis. There is no aortic valve regurgitation. Mitral Valve The mitral valve appears normal. There is trace mitral valve regurgitation. There is no mitral valve stenosis. Pulmonic Valve The pulmonic valve is likely normal. Tricuspid Valve There is trace tricuspid valve regurgitation. There is no evidence of pulmonary hypertension. Great Vessels The asc aorta is normal in size. Venous The inferior vena cava is normal in size and collapses greater than 50% with inspiration. Pericardium/Pleural There is no evidence of pericardial effusion. Prior Study Comparison No prior study available for comparison. Recommendations, Care & Conclusions No obvious valvular pathology seen on this study Discharge Plan Discharge Anticipated Discharge Date/Time: 02/17/24 14:58 Patient Disposition: Home, Self-Care Discharge Diagnosis: cva ,htn Referrals: Stephen [Outside] - 1 Week Dora Navas PA [Primary Care Provider] - 1 Week Discharge Medications: New amlodipine 2.5 mg tablet 2.5 mg PO DAILY Qty: 30 0RF Rx Instructions: Use if bp stay persistently 150 mmhg or above. Continued glipizide 10 mg tablet extended release 24hr 10 mg PO DAILY tramadol 50 mg tablet 50 mg PO Q6H PRN (Reason: Pain) levothyroxine 75 mcg tablet 75 mcg PO DAILY tamsulosin 0.4 mg capsule 0.4 mg PO DAILY paroxetine HCl 20 mg tablet 30 mg PO DAILY aspirin 81 mg Tablet,Chewable 81 mg PO DAILY diazepam 5 mg tablet 2.5 mg PO DAILY@1200 rosuvastatin 20 mg tablet 20 mg PO BEDTIME duloxetine 60 mg capsule,delayed release(DR/EC) 60 mg PO DAILY pregabalin 100 mg capsule 100 mg PO TID valsartan-hydrochlorothiazide 320-12.5 mg tablet 0.5 tab PO DAILY Jardiance 10 mg tablet 10 mg PO DAILY Linzess 72 mcg capsule 72 mcg PO DAILY PRN (Reason: constipation) Held alprazolam 0.25 mg tablet 0.125 mg PO BEDTIME Hold Instructions: Resume on 02/21/24. Discontinued ibuprofen 200 mg Tablet 200 mg PO Q6H PRN (Reason: Pain) Discharge Orders: Discharge Order (Routine); Ordered 02/17/24 Ordered By: Elijah Person Diet: Advance to usual diet Activity on Discharge: As tolerated Stand Alone Forms: Patient Portal Discharge page Print Language: Kyrgyz Care Plan Goals: Patient was admitted for aphasia, right lower extremity weakness-subsequently patient had CTA done which reviewed by Neurology-Noncontrast head CT did not reveal any obvious acute lesion. Left middle cerebral artery seemed hypodense on CT scan but there was no significant stenosis on CTA: Patient received TNK-patient's symptoms seems to be improved significantly, subsequently had episode of mild aphasia, repeat CT scan negative. MRI showed-Acute small right thalamic ischemic infarction probably of small vessel disease from HTN. Discussed with neurology-continue aspirin, statin, blood pressure control. Patient is on valsartan/hydrochlorothiazide for blood pressure, we added amlodipine 2.5 mg if blood pressure consistently in 150 range,then start using amlodipine. follow up outpatient with pcp and consider outpatient neurology eval. Health Concerns: as above. Plan of Treatment: as above. Assessment: as above.
--- NOTE | 2024-02-17 15:31 | MHC.CM.PN ---
Patient has been medically cleared for dc to home today, with services. Patient is active with Stephen ASTUDILLO, who has been notified of today's dc.
--- NOTE | 2024-02-17 16:17 | W.MHC.F2F ---
Service Date Service Date: 02/17/24 Encounter Date of encounter: 02/17/24 Encounter: New CVA, hypertension Reasons for Services Signs and symptoms assessed: New symptoms or signs of CVA. Reason for custodial: CV/CP assess and/or care, medication management, medication treatment and teach disease management Reason for physical therapy: home safety and mobility, therapeutic exercises, restore joint function, gait/transfer training, assess need for DME, ADL training, energy conservation and other MD Overseeing Care: Dora Navas Homebound: Leaving the home is medically contraindicated at this time without the asist of a device and/or another person due th the listed conditions above and below. Reason homebound: weakness related to hospital stay Homebound supporting statement: Patient is generalized weak post hospitalization stay, had new CVA-need help for blood draw, appointments, PT, bloodpressure monitering Certification: Based on the above findings, I certify that this patient is confined to the home and needs intermittent custodial care, physical therapy and/or speech therapy, or continues to need occupational therapy. The patient is under my care, and I have initiated the establishment of the plan of care. The patient will be followed by a physician who will periodically review the plan of care. Time Spent With Patient Time: Total time managing care of this patient today ____ minutes.
== END 2024-02-17 15:45 | disposition home health service (06) | DRG 45 ==
LOC: HO.ED 12:46 → HO.EDOVER 20:49 → HO.ICU 20:52 → HO.IMC 02-16 12:06
PROVIDERS: Nurse Practitioner Family; Student in an Organized Health Care Education/Training Program; Admitting Provider Internal Medicine Critical Care Medicine; Emergency Provider Emergency Medicine; PCP Physician Assistant; Visit Provider Internal Medicine
DX: I63.9 Cerebral infarction, unspecified (principal); E03.9 Hypothyroidism, unspecified; G83.11 Monoplegia of lower limb affecting right dominant side; I10 Essential (primary) hypertension; R29.705 NIHSS score 5; R29.810 Facial weakness; R47.81 Slurred speech; Z79.82 Long term (current) use of aspirin; Z79.890 Hormone replacement therapy; Z79.899 Other long term (current) drug therapy
CPT/HCPCS: 36415; 70450; 70496; 70498; 70551; 71045; 80048; 80053; 80061; 82947; 83036; 83735; 84100; 84484; 85025; 85610; 85730; 92950; 93005; 93306; 97162; 97166; 99285; J1920; J3101; Q9967

== ENCOUNTER → 2024-02-15 11:44 | Outpatient (BNV) | payer BC, SELFPAY | PROVIDERS: Emergency Provider Emergency Medicine; PCP Physician Assistant; Visit Provider Internal Medicine | DX: I49.3 Ventricular premature depolarization (principal) | CPT/HCPCS: 93010 ==

== ENCOUNTER → 2024-02-15 12:44 | Outpatient (BNV) | payer BC, SELFPAY | PROVIDERS: Emergency Provider Emergency Medicine; PCP Physician Assistant; Visit Provider Psychiatry & Neurology Neurology | DX: I63.9 Cerebral infarction, unspecified (principal) | CPT/HCPCS: 99222 ==

== ENCOUNTER 2024-02-15 18:02 | Outpatient (BNV) | payer BC, SELFPAY | END 2024-02-16 07:00 | PROVIDERS: Admitting Provider Internal Medicine Critical Care Medicine; Emergency Provider Emergency Medicine; PCP Physician Assistant; Visit Provider Internal Medicine | DX: I63.9 Cerebral infarction, unspecified (principal) | CPT/HCPCS: 93306 ==

== ENCOUNTER → 2024-02-15 18:02 | Outpatient (BNV) | payer BC, SELFPAY | PROVIDERS: Admitting Provider Internal Medicine Critical Care Medicine; Emergency Provider Emergency Medicine; PCP Physician Assistant; Visit Provider Internal Medicine | DX: I63.9 Cerebral infarction, unspecified (principal) | CPT/HCPCS: 99239; 99499; G0180 ==

== ENCOUNTER → 2024-02-15 18:02 | Outpatient (BNV) | payer BC, SELFPAY | PROVIDERS: Admitting Provider Internal Medicine Critical Care Medicine; Emergency Provider Emergency Medicine; PCP Physician Assistant; Visit Provider Internal Medicine Critical Care Medicine | DX: I63.9 Cerebral infarction, unspecified (principal) | CPT/HCPCS: 99233; 99291 ==

== ENCOUNTER 2024-02-24 10:40 | Outpatient (AMB) | payer BC, SELFPAY ==
--- NOTE | 2024-02-24 10:46 | A.OFFVIS_ITS ---
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 Patient reports his pain has been going on for about a year and is a 8 on the 1-10 pain scale. He states he has been falling a lot due to light headedness and strokes on March 21, 2023 and February 15, 2024. He denies injections and surgery. He states that his right knee will give out at times. He is not sure if it is due to the knee or his strokes. He wishes to hold off on surgery if at all possible. He does walk with a walker. Allergies No Known Allergies Allergy (Verified 02/24/24 11:03) Medication List - Last Reconciled 02/24/24 by Sunday Yeung MD alprazolam 0.125 mg PO BEDTIME amlodipine 2.5 mg PO DAILY aspirin 81 mg PO DAILY diazepam 2.5 mg PO DAILY@1200 duloxetine 60 mg PO DAILY empagliflozin (Jardiance) 10 mg PO DAILY glipizide ER 10 mg PO DAILY hydrochlorothiazide 12.5 mg PO DAILY levothyroxine 75 mcg PO DAILY linaclotide (Linzess) 72 mcg PO DAILY PRN melatonin 3 mg PO BEDTIME PRN paroxetine HCl 30 mg PO DAILY pregabalin 100 mg PO TID rosuvastatin 20 mg PO BEDTIME tamsulosin 0.4 mg PO DAILY tramadol 50 mg PO Q6H PRN valsartan-hydrochlorothiazide 320-12.5 mg 0.5 tabs PO DAILY PFSH Surgical History (Updated 02/24/24 @ 11:05 by Liza Bernard CMA) Hx of craniotomy History of back surgery History of surgery on wrist Social History (Updated 02/24/24 @ 11:06 by Liza Bernard CMA) Household Members: Spouse Housing: House Do you presently have visiting nurse or other home services: Yes (home physical therapy) Patient Tobacco Use Status: Never used Tobacco e-Cigarette/Vaping Use: Never Used Second Hand Smoke Exposure: No service: No Current occupational status: retired Current occupation: Left hand dominate Physical Exam Const Other: Well-nourished well-developed very friendly male awake alert and oriented x3 in no acute distress Extrem Other: Bilateral lower extremity examination shows good capillary refill, no skin lesions noted, normal sensation light touch Right knee examination shows diffuse ecchymosis, no open skin lesions, minimal crepitus with range of motion, tenderness along his medial joint line, positive Donald's test, no instability Results Reviewed Results Reviewed: X-rays of the patient's right knee show mild diffuse joint space narrowing, no acute bony abnormalities Assessment & Plan Assessment & Plan (1) Right knee pain: Code(s): M25.561 - Pain in right knee Category: Medical Plan Mr. Da Silva presents with right knee pain and mechanical symptoms due to early degenerative joint disease as well as possible medial meniscus tearing. I had a lengthy discussion with the patient regarding the treatment options. He wishes to hold off on surgery for as long as possible. I agree with this plan. I did have him fitted with a knee brace to help with his mechanical symptoms. I feel that the knee brace is a medical necessity to help prevent future falls. The patient will continue with activity modifications. He will contact me prior to his follow-up appointment in 6 weeks should his symptoms worsen in any way. I his symptoms are not improved at his follow-up appointment we will further discuss the risks and benefits of a cortisone injection. Feel free to call me at any time should questions regarding his orthopedic management arise. Thank you very much for asking me to see this very friendly gentleman. I spent 22 minutes in reviewing the patient's records and imaging studies, seeing the patient and documenting in the medical record. Orders: Orders XR knee RT 3V Today M25.561 - Pain in right knee Coding Level of Care Code New Pt Level 2 (12490) Diagnoses Right knee pain M25.561
== END 2024-02-24 11:18 | disposition home or self-care (01) ==
PROVIDERS: PCP Physician Assistant; Visit Provider Orthopaedic Surgery
DX: M25.561 Pain in right knee (principal)
CPT/HCPCS: 99202

== ENCOUNTER 2024-02-24 13:06 | Outpatient (REF) | payer BC, SELFPAY ==
--- NOTE | ~2024-02-24 | XR_ITS ---
EXAMINATION: XR KNEE, RIGHT CLINICAL INFORMATION: Pain in right knee COMPARISON: None available. TECHNIQUE: 3 views of the right knee. FINDINGS: No fracture or joint effusion. There is lateral patellar tilt with associated narrowing of the patellofemoral joint compartment. There is mild narrowing of the medial joint compartment. There is soft tissue fullness posterior to the knee which could represent a Lee's cyst. There are small calcific densities posterior to the knee which could represent loose bodies within the joint. XR/XR knee RT 3V IMPRESSION: 1. Mild osteoarthritis. 2. Question of Lee's cyst. If of clinical concern, ultrasound of the popliteal fossa could be obtained. 3. Question of loose bodies within the joint. MRI scan could be obtained for further evaluation.
== END 2024-02-24 13:07 | disposition home or self-care (01) ==
LOC: HO.HOSX 13:06
PROVIDERS: Visit Provider Orthopaedic Surgery
DX: M25.561 Pain in right knee (principal)
CPT/HCPCS: 73562

== ENCOUNTER 2024-05-20 11:30 | Outpatient (REF) | payer BC, SELFPAY ==
[2024-05-20 18:50] LABS: Appearance Urine Clear; Color Urine Yellow; Glucose Urine UA >=1000 mg/dL (Negative); Leukocyte Esterase Urine Negative (Negative); Nitrite Urine Negative (Negative); PH 6.5 (5.0-9.0); Specific Gravity - Urine >= 1.030 (1.005-1.025); UMIC TRIGGER UACC YES; Urine Blood Large (3+) (Negative); Urine Ketones Negative (Negative); Urine Protein Negative (Neg-Trace)
[2024-05-20 18:59] LABS: Bacteria Urine None Seen (None Seen); Hyaline Casts Urine 0-2 /LPF (0-2); RBC Urine >20 /HPF (0-2); Squamous Epithelial Cell Urine 0-2 /HPF (0-2); WBC Urine 0-5 /HPF (0-5)
== END 2024-05-20 11:31 | disposition home or self-care (01) ==
LOC: HO.MANLNP 11:30
PROVIDERS: Visit Provider Physician Assistant
DX: R31.0 Gross hematuria (principal)
CPT/HCPCS: 81001